=== PATIENT | female | born 1975 | race Caucasian/White ===

== ENCOUNTER 2018-02-21 15:02 | Emergency (ER) | payer MEDICARE ==
[~2018-02-21] VITALS: Ht 167.6 cm; Wt 113.4 kg
[~2018-02-21 15:02] MED LIST: LISINOPRIL5 MG PO
--- NOTE | 2018-02-21 17:05 | Diagnostic Imaging Report ---
RIGHT KNEE - 3 VIEWS RIGHT TIBIA AND FIBULA - 2 VIEWS RIGHT ANKLE - views HISTORY: Pain, "rolled her ankle-felt pop", history of several fractures COMPARISON: None available. FINDINGS: Bones: An irregular lucent line at the tip of the lateral malleolus. Additional 2 mm calcific density between the tip of the lateral malleolus and talus. Subtle linear heterogeneous increased density of the dorsal calcaneus, which may reflect the sequela of remote healed fracture. Joints: Minimal medial femoral compartment degenerative changes of the knee. The ankle mortise is symmetric. Soft tissues: Mild lateral ankle soft tissue swelling. IMPRESSION: Acute memory displaced fracture involving the tip of the lateral malleolus. Signed by: Dr. Jose Alfredo Nguyen D.O., M.M.M. on 02/21/2018 5:01 PM
[2018-02-21] MEDS ORDERED: HYDROCODONE/APAP 5MG-325MG TAB PO ONE (17:45)
[2018-02-21 18:04] VITALS: BP 109/88
== END 2018-02-21 18:22 | disposition home or self-care (01) ==
LOC: ER 15:02
DX: S82.61XA Displaced fracture of lateral malleolus of right fibula, initial encounter for closed fracture (principal); W01.0XXA Fall on same level from slipping, tripping and stumbling without subsequent striking against object, initial encounter; Y93.01 Activity, walking, marching and hiking; Y92.008 Other place in unspecified non-institutional (private) residence as the place of occurrence of the external cause; I10 Essential (primary) hypertension; E78.5 Hyperlipidemia, unspecified; E07.9 Disorder of thyroid, unspecified
CPT/HCPCS: 99284

== ENCOUNTER → 2018-09-13 | Day surgery (SDC) | payer MEDICARE ==
[~2018-09-13] MED LIST changes: +BUPIVACAINE HCL 0.5% INJ 30 ML VIAL INJ ONE; +CLINDAMYCIN 600MG / 50ML 0 ML IV ONE; +DEXAMETHASONE SOD PHOS INJ 4 MG/ML VIAL ONE; +FENTANYL CITRATE/PF 100MCG/2 ML INJ ONE; +LEVOTHYROXINE88 MCG PO; +LIDOCAINE HCL 2% LOCAL INJ 5 ML SDV VIAL INJ ONE; +LOVASTATIN40 MG PO; +METOCLOPRAMIDE HCL 10 MG/2ML VIAL ONE; +MIDAZOLAM HCL 2 MG/2 ML VIAL ONE; +MUPIROCIN 2% OINT 22 GM TUBE ONE; +ONDANSETRON HCL INJ 2MG/ML 2ML 2 MG/ML VIAL ONE; +PHENYLEPHRINE HCL 1% 10 MG/ML VIAL ONE; +PROMETHAZINE HCL (IM) 25 MG/ML VIAL ONE; +PROPOFOL IV EMULSION 10 MG/ML 20 ML VIAL ONE; +SEVOFLURANE INHAL SOLN 250 ML PEN BTL ONE; +VITAMIN E400 UNIT PO; +ZYRTEC10 M3 PO
--- OUTSIDE RECORDS SUMMARY | 2018-09-13 05:24 | XMS REPORT | Continuity of Care Document ---
Author Author [facility] Interface Address Unknown Phone Unavailable Problems Problem Status Onset Date Classification Date Reported Comments Source LEFT ANKLE Active 10/25/2017 [facility] Mastitis without abscess 09/22/2017 12/20/2017 [facility] Cellulitis of right breast 09/13/2017 12/20/2017 [facility] Abscess of buttock, right 09/13/2017 12/20/2017 [facility] BITE Active 09/13/2017 [facility] Calculus of kidney with calculus of ureter 09/11/2017 12/13/2017 [facility] Pyonephrosis 07/22/2017 10/21/2017 [facility] DX: URETER, CALCULUS Active 07/20/2017 [facility] UTI, UERTEROLITHIASIS Active 07/12/2017 [facility] URINARY SYMPTOMS Active 07/12/2017 [facility] UNK Active 07/05/2017 [facility] VOMITTING Active 07/04/2017 [facility] Discharge Diagnosis: Contusion of knee, right 03/08/2017 03/11/2017 [facility] KNEE PAIN Active 03/08/2017 [facility] HTN - Hypertension Active Problem 01/26/2018 [facility] Hypercholesterolemia Active Problem 01/26/2018 [facility] Kidney stone Active Problem 01/26/2018 [facility] Morbid obesity Active Problem 01/26/2018 [facility] Urinary tract infection, site not specified 10/21/2017 [facility] Morbid obesity due to excess calories 10/21/2017 [facility] Unspecified kidney failure 10/21/2017 [facility] Essential hypertension 12/20/2017 [facility] Hyperlipidemia, unspecified 10/21/2017 [facility] Dehydration 10/21/2017 [facility] Hypothyroidism, unspecified 10/21/2017 [facility] Body mass index 38.0-38.9, adult 10/21/2017 [facility] Cutaneous abscess of buttock 12/20/2017 [facility] Insect bite of lower back and pelvis, initial encounter 12/20/2017 [facility] Insect bite of breast, right breast, initial encounter 12/20/2017 [facility] Contact with and exposure to environmental tobacco smoke (acute) (chronic) 12/20/2017 [facility] Bitten or stung by nonvenomous insect and other nonvenomous arthropods, initial encounter 12/20/2017 [facility] URINARY TRACT INFECTION, SITE NOT SPECIF Active [facility] CALCULUS OF URETER Active [facility] Medications Medication Details Route Status Patient Instructions Ordering Provider Order Date Source ibuprofen 800 mg oral tablet 800 mg=1 tab, PO, Q8H, X 5 day, # 30 tab, 0 Refill(s) No Longer Active 09/13/2017 [facility] Sulfamethoxazole 800 MG / Trimethoprim 160 MG Oral Tablet [Bactrim] 1 tab, PO, BID, X 10 day, # 20 tab, 0 Refill(s) No Longer Active 09/13/2017 [facility] Mupirocin 0.02 MG/MG Topical Ointment [Bactroban] 1 appl, TOP, TID, X 5 day, # 22 gm, 0 Refill(s) No Longer Active 09/13/2017 [facility] Levofloxacin 500 MG Oral Tablet [Levaquin] 500 mg=1 tab, PO, Q24H, X 7 day, # 7 tab, 0 Refill(s), Pharmacy: [facility] [id number] No Longer Active 07/15/2017 [facility] Thyroxine 75 microgram, 1 tab, Route: PO, Drug form: TAB, [id number], Dosing Weight 101.818, kg, Start date: 07/15/17 6:30:00 [employer], Duration: 30 day, Stop date: 08/13/17 6:30:00 CSTNotes: Take 1 hour before or 2 hours after meal; Enteral feeds may interefere with the absorption of this medication. (Same as:Synthroid, Levothroid) Inactive 07/15/2017 [facility] Tylenol 500 mg, 1 tab, Route: PO, Drug form: TAB, Q6H, Dosing Weight 101.818, kg, PRN Pain 1-3/Temp > 100.4 F, Start date: 07/14/17 12:09:00 [employer], Duration: 30 day, Stop date: 08/13/17 12:08:00 CSTNotes: Max acetaminophen 4000 mg/day (4 gm/day). (Same as: Tylenol Extra Strength) No Longer Active 07/14/2017 [facility] Lisinopril 5 mg, 1 tab, Route: PO, Drug form: TAB, Daily, Dosing Weight 101.818, kg, Start date: 07/14/17 9:00:00 [employer], Duration: 30 day, Stop date: 08/12/17 9:00:00 CSTNotes: (Same as: Prinivil, Zestril) No Longer Active 07/14/2017 [facility] Zyrtec 10 mg, 2 tab, Route: PO, Drug form: TAB, Daily, Dosing Weight 101.818, kg, Start date: 07/14/17 9:00:00 [employer], Duration: 30 day, Stop date: 08/12/17 9:00:00 CSTNotes: (Same As: Zyrtec) No Longer Active 07/14/2017 [facility] Lipitor 10 mg, 1 tab, Route: PO, Drug form: TAB, Daily, Start date: 07/14/17 9:00:00 [employer], Duration: 30 day, Stop date: 08/12/17 9:00:00 CSTNotes: (Same As: Lipitor) No Longer Active 07/14/2017 [facility] Vitamin E 400 IntlUnit, 1 cap, Route: PO, Drug form: CAP, Daily, Dosing Weight 101.818, kg, Start date: 07/14/17 9:00:00 [employer], Duration: 30 day, Stop date: 08/12/17 9:00:00 [employer] No Longer Active 07/14/2017 [facility] Lovastatin 20 mg, Route: PO, Daily, Dosing Weight 101.818, kg, Start date: 07/14/17 9:00:00 [employer], Duration: 30 day, Stop date: 08/12/17 9:00:00 [employer] No Longer Active 07/14/2017 [facility] Thyroxine 75 microgram, 1 tab, Route: PO, Drug form: TAB, Daily, Dosing Weight 101.818, kg, Start date: 07/14/17 6:30:00 [employer], Duration: 30 day, Stop date: 08/12/17 6:30:00 CSTNotes: Take 1 hour before or 2 hours after meal; Enteral feeds may interefere with the absorption of this medication. (Same as:Synthroid, Levothroid) No Longer Active 07/14/2017 [facility] Imodium A-D 2 mg, 1 cap, Route: PO, Drug form: CAP, Q4H, Dosing Weight 101.818, kg, PRN Diarrhea, Start date: 07/13/17 16:42:00 [employer], Duration: 30 day, Stop date: 08/12/17 16:41:00 CSTNotes: (Same as: Imodium) MAX adult dose is 8 caps/day No Longer Active 07/13/2017 [facility] Levaquin 750 mg, 150 mL, Route: IV, Drug form: SOLN, [id number], Start date: 07/13/17 16:00:00 [employer], Duration: 30 day, Stop date: 08/11/17 9:00:00 [employer], ABX Indication: BacteremiaNotes: (Same as:Levaquin) No Longer Active 07/13/2017 [facility] Rocephin 1 gm, Route: IVPB, Drug form: PDR/INJ, [id number], Dosing Weight 101.818, kg, Start date: 07/13/17 14:00:00 [employer], Duration: 10 day, Stop date: 07/22/17 14:00:00 [employer], ABX Indication: Bacteremia Inactive 07/13/2017 [facility] Acetaminophen 325 MG / Hydrocodone Bitartrate 5 MG Oral Tablet [[place] 5/325] 1 tab, Route: PO, Drug Form: TAB, Dosing Weight 101.818, kg, Q6H, PRN Pain Score 1-3, Start date: 07/13/17 13:46:00 [employer], Duration: 30 day, Stop date: 08/12/17 13:45:00 CSTNotes: (Same as: [place] 325/5) Do not exceed 4gm/day of acetaminophen. No Longer Active 07/13/2017 [facility] morphine Sulfate 12 mg, 6 mL, Route: PO, Drug form: SOLN, Q4H, PRN Pain Score 7-10, Start date: 07/13/17 10:00:00 [employer], Duration: 30 day, Stop date: 08/12/17 9:59:00 CSTNotes: (Same as:MORPhine Sulfate) No Longer Active 07/13/2017 [facility] ketOROLAC 15 mg/mL injectable solution 15 mg, 0.5 mL, Route: IVP, Drug form: INJ, Q6H, Dosing Weight 101.818, kg, PRN Pain Score 4-6, Start date: 07/13/17 9:47:00 [employer], Duration: 4 day, Stop date: 07/17/17 9:46:00 CSTNotes: (Same as:Toradol) IV bolus must be given >15 seconds. Give IM administration slowly and deeply into the muscle. Not for use > 4 days MEDICATION WASTE Product Size: 30 mg Product Wasted: ___ mg No Longer Active 07/13/2017 [facility] Levaquin 500 mg, 2 tab, Route: PO, Drug form: TAB, [id number], Dosing Weight 101.818, kg, Start date: 07/13/17 8:00:00 [employer], Duration: 10 day, Stop date: 07/22/17 8:00:00 [employer], ABX Indication: Urinary Tract InfectionNotes: Do not give w/antacids, dairy pdt & minerals Take 1 hr before or 2 hr after dairy pdt (Same as:Levaquin) Inactive 07/13/2017 [facility] hydromorphone 0.5 mg, 0.5 mL, Route: IV, Drug form: INJ, Q4H, PRN Pain Score 7-10, Start date: 07/13/17 3:10:00 [employer], Stop date: 07/13/17 9:00:00 CSTNotes: Same as: Dilaudid Inactive 07/13/2017 [facility] Ondansetron 4 mg, 2 mL, Route: IVP, Drug form: INJ, Q6H, Dosing Weight 101.818, kg, PRN Nausea & Vomiting, Start date: 07/13/17 1:38:00 [employer], Duration: 30 day, Stop date: 08/12/17 1:37:00 CSTNotes: (Same as: Zofran) MEDICATION WASTE Product Size: 4 mg Product Wasted: ___ mg No Longer Active 07/13/2017 [facility] Morphine 4 mg, Route: IVP, Q4H, Dosing Weight 101.818, kg, PRN Pain Score 7-10, Start date: 07/13/17 1:38:00 [employer], Duration: 30 day, Stop date: 08/12/17 1:37:00 [employer] Inactive 07/13/2017 [facility] Saline Flush 0.9% 10 ml, Route: IVP, Drug Form: INJ, Dosing Weight 101.818, kg, PRN, PRN Line Flush, Start date: 07/13/17 1:38:00 [employer], Duration: 30 day, Stop date: 08/12/17 1:37:00 CSTNotes: (Same as: BD Posiflush) No Longer Active 07/13/2017 [facility] Sodium Chloride 0.9% IV 1,000 mL 1,000 mL, Rate: 125 ml/hr, Infuse over: 8 hr, Route: IV, Dosing Weight 101.818 kg, Total Volume: 1,000, Start date: 07/13/17 1:38:00 [employer], Duration: 30 day, Stop date: 08/12/17 1:37:00 [employer], 2.18, m2 No Longer Active 07/13/2017 [facility] Sodium Chloride 0.9% (Bolus) IV 1,000 mL, 1000 ml/hr, Infuse Over: 1 hr, Route: IV, 1,000, Drug form: INJ, ONCE, Priority: STAT, Dosing Weight 101.818 kg, Start date: 07/12/17 23:52:00 [employer], Stop date: 07/12/17 23:52:00 [employer] No Longer Active 07/13/2017 [facility] Zofran 4 mg, Route: IVP, Drug form: INJ, ONCE, Dosing Weight 101.818, kg, Priority: STAT, Start date: 07/12/17 20:11:00 [employer], Stop date: 07/12/17 20:11:00 [employer] Inactive 07/13/2017 [facility] Fentanyl 50 microgram, Route: IVP, ONCE, Dosing Weight 101.818, kg, Priority: STAT, Start date: 07/12/17 20:11:00 [employer], Stop date: 07/12/17 20:11:00 [employer] Inactive 07/13/2017 [facility] Tylenol 1,000 mg, 2 tab, Route: PO, Drug form: TAB, ONCE, Dosing Weight 101.818, kg, Start date: 07/12/17 20:11:00 [employer], Stop date: 07/12/17 20:11:00 CSTNotes: Max acetaminophen 4000 mg/day (4 gm/day). (Same as: Tylenol Extra Strength) No Longer Active 07/13/2017 [facility] meropenem 1,000 mg, Route: IVPB, Drug form: PDR/INJ, ONCE, Dosing Weight 101.818, kg, Priority: STAT, Start date: 07/12/17 20:09:00 [employer], Stop date: 07/12/17 20:09:00 [employer], ABX Indication: Intra-abdominal Infection Inactive 07/13/2017 [facility] Cipro 400 mg, Route: IVPB, ONCE, Dosing Weight 101.818, kg, Priority: STAT, Start date: 07/12/17 19:59:00 [employer], Stop date: 07/12/17 19:59:00 [employer], ABX Indication: Urinary Tract Infection Inactive 07/13/2017 [facility] NS (Bolus) IV 1,000 mL, 1,000 ml/hr, Infuse Over: 1 hr, Route: IV, ONCE, Priority: STAT, Dosing Weight 101.818 kg, Start date: 07/12/17 16:10:00 [employer], Stop date: 07/12/17 16:10:00 [employer] Inactive 07/12/2017 [facility] Tobramycin 450 mg, 11.25 mL, Route: IVPB, ONCE, Dosing Weight 101.818, kg, CrCl >/=30 ml/min, Time Critical Medication, Priority: STAT, Start date: 07/12/17 15:20:00 [employer], Stop date: 07/12/17 15:20:00 CSTNotes: TIME CRITICAL MEDICATION (Same As: Nebcin) For adult patients only: Round to nearest 10 mg per Medical Staff approval Inactive 07/12/2017 [facility] Calcium Chloride 0.0014 MEQ/ML / Potassium Chloride 0.004 MEQ/ML / Sodium Chloride 0.103 MEQ/ML / Sodium Lactate 0.028 MEQ/ML Injectable Solution 3,300 mL, 1941.18 ml/hr, Infuse Over: 1.7 hr, Route: IV, 3,300, Drug form: INJ, ONCE, Priority: STAT, Dosing Weight 109.818 kg, Start date: 07/12/17 15:18:00 [employer], Stop date: 07/12/17 15:18:00 [employer] Inactive 07/12/2017 [facility] Saline Flush 0.9% 10 mL, Route: IVP, Drug Form: INJ, Dosing Weight 101.818, kg, PRN, PRN Line Flush, Start date: 07/12/17 15:18:00 [employer], Duration: 30 day, Stop date: 08/11/17 15:17:00 CSTNotes: (Same as: BD Posiflush) No Longer Active 07/12/2017 [facility] tramadol hydrochloride 50 MG Oral Tablet [Ultram] 1 - 2 tabs, PO, Q4-6H, PRN Pain 1-3/Temp > 100.4 F, X 4 day, # 30 tab, 0 Refill(s), other No Longer Active 07/09/2017 [facility] ibuprofen 600 mg oral tablet 600 mg=1 tab, PO, Q6H, PRN Pain, take with food, X 7 day, # 28 tab, 0 Refill(s) Active 03/09/2017 [facility] Ibuprofen 800 mg, Route: PO, Drug form: TAB, ONCE, Dosing Weight 124.091, kg, Priority: STAT, Start date: 03/08/17 22:50:00 CDT, Stop date: 03/08/17 22:50:00 CDT Inactive 03/09/2017 [facility] Tylenol 1,000 mg, Route: PO, ONCE, Dosing Weight 124.091, kg, Start date: 03/08/17 22:49:00 CDT, Stop date: 03/08/17 22:49:00 CDT Inactive 03/09/2017 [facility] Allergies, Adverse Reactions, Alerts Substance Category Reaction Severity Reaction type Status Date Reported Comments Source codeine Assertion Drug allergy Active [facility] Keflex Assertion Rash Drug allergy Active [facility] Immunizations Immunization Date Given Site Status Last Updated Comments Source influenza virus vaccine, inactivated 04/18/2014 Right deltoid completed [facility] Results Order Name Results Value Reference Range Date Interpretation Comments Source Ankle 3 views DX Ankle 3 views DX LEFT ANKLE Clinical Indication: - M25.572 Pain in left ankle and joints of left foot Comparison: None FINDINGS: The 3 views of the left ankle show normal alignment without fractures or dislocations. The tibiotalar joint and talar dome are unremarkable. The subtalar joint is unremarkable. There is no ankle joint effusion. The ankle mortise is intact. The distal tibia-fibular alignment is unremarkable. There is no soft tissue swelling or radiopaque foreign bodies. If there is further concern, recommend follow-up radiographs or MRI for complete assessment. IMPRESSION: 1. No fractures or dislocation of the ankle. SL: [id number] 10/25/2017 - - Read by: Birgit Mon MD Dictated Date/time: 10/25/17 15:42 Electronically Signed by: Birgit Mon MD 10/25/17 15:43 FINAL REPORT [facility] URINE AND STOOL POC UA LeukEst Negative *NA* (09/20/17 11:34 AM) Negative 09/20/2017 [facility] URINE AND STOOL POC UA Nit Negative *NA* (09/20/17 11:34 AM) Negative 09/20/2017 [facility] URINE AND STOOL POC UA pH 7.0 5.0 - 8.0 09/20/2017 [facility] URINE AND STOOL POC UA SG 1.015 <=1.030 09/20/2017 [facility] URINE AND STOOL POC UA Turbidity Clear *NA* (09/20/17 11:34 AM) Clear 09/20/2017 [facility] URINE AND STOOL POC UA Color Yellow *NA* (09/20/17 11:34 AM) Yellow 09/20/2017 [facility] URINE AND STOOL POC UA Uro 0.2 EU/dL 0.1 - 1.0 09/20/2017 [facility] URINE AND STOOL POC UA Bld Negative *NA* (09/20/17 11:34 AM) Negative 09/20/2017 [facility] URINE AND STOOL POC UA Bili Negative *NA* (09/20/17 11:34 AM) Negative 09/20/2017 [facility] URINE AND STOOL POC UA Ket Negative mg/dL Negative mg/dL 09/20/2017 [facility] URINE AND STOOL POC UA Glu Negative mg/dL Negative mg/dL 09/20/2017 [facility] URINE AND STOOL POC UA Prot Negative mg/dL Negative mg/dL 09/20/2017 [facility] Retroperitoneal Complete US Retroperitoneal Complete US Clinical Indication: - HX OF INFECTIONS W/STENTS; Comparison: CT July 12, 2017. TECHNIQUE: Multiple longitudinal and transverse real time sonographic images of the kidneys and urinary bladder are obtained. FINDINGS: KIDNEY: The right kidney measures 11.9 cm. The left kidney measures 11.8 cm. The kidneys are normal in size, shape, contour, and position. The cortices are normal in thickness and the corticomedullary differentiation is maintained. No calculus, hydronephrosis, mass, or cyst is appreciated. BLADDER: Partial distension of the urinary bladder with anechoic fluid is noted. No wall thickening or mass is seen. Visualized portions of the abdominal aorta and IVC are unremarkable. IMPRESSION: 1. Resolution of previous right hydronephrosis since July 12, 2017. 2. Normal sonographic appearance of both kidneys. SL: [id number] 09/06/2017 - - Read by: Anuel Huerta MD Dictated Date/time: 09/06/17 14:32 Electronically Signed by: Anuel Huerta MD 09/06/17 14:35 FINAL REPORT [facility] URINE AND STOOL POC UA Nit Negative *NA* (08/11/17 1:48 PM) Negative 08/11/2017 [facility] URINE AND STOOL POC UA LeukEst Negative *NA* (08/11/17 1:48 PM) Negative 08/11/2017 [facility] URINE AND STOOL POC UA Bld Negative *NA* (08/11/17 1:48 PM) Negative 08/11/2017 [facility] URINE AND STOOL POC UA Uro 0.2 EU/dL 0.1 - 1.0 08/11/2017 [facility] URINE AND STOOL POC UA Glu Negative mg/dL Negative mg/dL 08/11/2017 [facility] URINE AND STOOL POC UA Bili Negative *NA* (08/11/17 1:48 PM) Negative 08/11/2017 [facility] URINE AND STOOL POC UA Ket Negative mg/dL Negative mg/dL 08/11/2017 [facility] URINE AND STOOL POC UA Color Yellow *NA* (08/11/17 1:48 PM) Yellow 08/11/2017 [facility] URINE AND STOOL POC UA Turbidity Clear *NA* (08/11/17 1:48 PM) Clear 08/11/2017 [facility] URINE AND STOOL POC UA SG 1.020 <=1.030 08/11/2017 [facility] URINE AND STOOL POC UA Prot Negative mg/dL Negative mg/dL 08/11/2017 [facility] URINE AND STOOL POC UA pH 6.0 5.0 - 8.0 08/11/2017 [facility] ELECTROLYTES AGAP 12.6 meq/L 10.0 - 20.0 07/14/2017 [facility] ELECTROLYTES eGFR 111 mL/min/1.73m2 07/14/2017 Result Comment: The eGFR is calculated using the CKD-EPI formula. In most young, healthy individuals the eGFR will be >90 mL/min/1.73m2. The eGFR declines with age. An eGFR of 60-89 may be normal in some populations, particularly the elderly, for whom the CKD-EPI formula has not been extensively validated. Use of the eGFR is not recommended in the following populations: Individuals with unstable creatinine concentrations, including patients and those with serious co-morbid conditions. Patients with extremes in muscle mass or diet. The data above are obtained from the National Kidney Disease Education Program (NKDEP) which additionally recommends that when the eGFR is used in patients with extremes of body mass index for purposes of drug dosing, the eGFR should be multiplied by the estimated BMI. [facility] ELECTROLYTES Potassium Lvl 3.6 meq/L 3.5 - 5.1 07/14/2017 [facility] ELECTROLYTES Chloride Lvl 106 meq/L 95 - 109 07/14/2017 [facility] ELECTROLYTES Sodium Lvl 140 meq/L 135 - 145 07/14/2017 [facility] ELECTROLYTES Creatinine Lvl 0.63 mg/dL 0.50 - 1.40 07/14/2017 [facility] ELECTROLYTES BUN 11 mg/dL 7 - 22 07/14/2017 [facility] ELECTROLYTES Calcium Lvl 8.4 mg/dL 8.5 - 10.5 07/14/2017 [facility] ELECTROLYTES CO2 25 meq/L 24 - 32 07/14/2017 [facility] ELECTROLYTES Glucose Lvl 100 mg/dL 70 - 99 07/14/2017 [facility] RDW 13.4 % 11.5 - 14.5 07/14/2017 [facility] MCHC 33.7 g/dL 32.0 - 36.0 07/14/2017 [facility] Platelet 268 K/CMM 133 - 450 07/14/2017 [facility] MCV 80.5 fL 80.0 - 98.0 07/14/2017 [facility] MCH 27.1 pg 27.0 - 31.0 07/14/2017 [facility] RBC 3.89 M/CMM 4.20 - 5.40 07/14/2017 [facility] Hgb 10.5 g/dL 12.0 - 16.0 07/14/2017 [facility] Hct 31.3 % 36.0 - 48.0 07/14/2017 [facility] MPV 8.7 fL 7.4 - 10.4 07/14/2017 [facility] HEMATOLOGY WBC 11.0 K/CMM 3.7 - 10.4 07/14/2017 [facility] HEMATOLOGY Basophils # 0.1 K/CMM 0.0 - 0.2 07/14/2017 [facility] HEMATOLOGY Monocytes # 1.0 K/CMM 0.0 - 0.8 07/14/2017 [facility] HEMATOLOGY Eosinophils # 0.4 K/CMM 0.0 - 0.5 07/14/2017 [facility] HEMATOLOGY Lymphocytes # 1.7 K/CMM 1.0 - 5.5 07/14/2017 [facility] HEMATOLOGY Basophils 0.5 % 0.0 - 1.0 07/14/2017 [facility] HEMATOLOGY Segs-Bands # 7.9 K/CMM 1.5 - 8.1 07/14/2017 [facility] HEMATOLOGY Segs 71.7 % 45.0 - 75.0 07/14/2017 [facility] Monocytes 8.9 % 2.0 - 12.0 07/14/2017 [facility] Lymphocytes 15.6 % 20.0 - 40.0 07/14/2017 [facility] Eosinophils 3.3 % 0.0 - 4.0 07/14/2017 [facility] CHEM PANEL Magnesium Lvl 1.8 mg/dL 1.8 - 2.4 07/13/2017 [facility] CHEM PANEL eGFR 86 mL/min/1.73m2 07/13/2017 Result Comment: The eGFR is calculated using the CKD-EPI formula. In most young, healthy individuals the eGFR will be >90 mL/min/1.73m2. The eGFR declines with age. An eGFR of 60-89 may be normal in some populations, particularly the elderly, for whom the CKD-EPI formula has not been extensively validated. Use of the eGFR is not recommended in the following populations: Individuals with unstable creatinine concentrations, including patients and those with serious co-morbid conditions. Patients with extremes in muscle mass or diet. The data above are obtained from the National Kidney Disease Education Program (NKDEP) which additionally recommends that when the eGFR is used in patients with extremes of body mass index for purposes of drug dosing, the eGFR should be multiplied by the estimated BMI. [facility] CHEM PANEL Globulin 3.7 g/dL 2.7 - 4.2 07/13/2017 [facility] CHEM PANEL Bili Total 1.0 mg/dL 0.2 - 1.3 07/13/2017 [facility] CHEM PANEL Alk Phos 71 unit/L 39 - 136 07/13/2017 [facility]M PANEL AST 9 unit/L 0 - 37 07/13/2017 [facility] CHEM PANEL Albumin Lvl 2.9 g/dL 3.5 - 5.0 07/13/2017 [facility] CHEM PANEL A/G Ratio 0.8 0.7 - 1.6 07/13/2017 [facility] CHEM PANEL ALT 13 unit/L 0 - 65 07/13/2017 [facility] CHEM PANEL Glucose Lvl 111 mg/dL 70 - 99 07/13/2017 [facility] CHEM PANEL Potassium Lvl 3.3 meq/L 3.5 - 5.1 07/13/2017 [facility] CHEM PANEL Sodium Lvl 138 meq/L 135 - 145 07/13/2017 [facility] CHEM PANEL Creatinine Lvl 0.84 mg/dL 0.50 - 1.40 07/13/2017 [facility] CHEM PANEL BUN 10 mg/dL 7 - 22 07/13/2017 [facility] CHEM PANEL Calcium Lvl 8.0 mg/dL 8.5 - 10.5 07/13/2017 [facility] CHEM PANEL AGAP 14.3 meq/L 10.0 - 20.0 07/13/2017 [facility] CHEM PANEL CO2 25 meq/L 24 - 32 07/13/2017 [facility] CHEM PANEL Chloride Lvl 102 meq/L 95 - 109 07/13/2017 [facility] CHEM PANEL Total Protein 6.6 g/dL 6.4 - 8.4 07/13/2017 [facility] CHEM PANEL B/C Ratio 12 6 - 25 07/13/2017 [facility] HEMATOLOGY Segs 76.4 % 45.0 - 75.0 07/13/2017 [facility] HEMATOLOGY Segs-Bands # 10.1 K/CMM 1.5 - 8.1 07/13/2017 [facility] HEMATOLOGY Eosinophils 1.1 % 0.0 - 4.0 07/13/2017 [facility] HEMATOLOGY Basophils 0.4 % 0.0 - 1.0 07/13/2017 [facility] HEMATOLOGY Basophils # 0.1 K/CMM 0.0 - 0.2 07/13/2017 [facility] HEMATOLOGY Eosinophils # 0.1 K/CMM 0.0 - 0.5 07/13/2017 [facility] HEMATOLOGY Monocytes 10.4 % 2.0 - 12.0 07/13/2017 [facility] HEMATOLOGY Lymphocytes 11.7 % 20.0 - 40.0 07/13/2017 [facility] Monocytes # 1.4 K/CMM 0.0 - 0.8 07/13/2017 [facility] HEMATOLOGY Lymphocytes # 1.5 K/CMM 1.0 - 5.5 07/13/2017 [facility] RBC 4.11 M/CMM 4.20 - 5.40 07/13/2017 [facility] WBC 13.2 K/CMM 3.7 - 10.4 07/13/2017 [facility] Platelet 267 K/CMM 133 - 450 07/13/2017 [facility] MCHC 33.7 g/dL 32.0 - 36.0 07/13/2017 [facility] RDW 13.6 % 11.5 - 14.5 07/13/2017 [facility] MPV 9.1 fL 7.4 - 10.4 07/13/2017 [facility] Hgb 11.1 g/dL 12.0 - 16.0 07/13/2017 [facility] Hct 33.1 % 36.0 - 48.0 07/13/2017 [facility] MCH 27.1 pg 27.0 - 31.0 07/13/2017 [facility] MCV 80.5 fL 80.0 - 98.0 07/13/2017 [facility] [facility]INE [facility] STOOL UA Nitrite Negative (07/12/17 8:02 PM) Negative 07/13/2017 [facility] URINE AND STOOL UA Blood Large *ABN* (07/12/17 8:02 PM) Negative 07/13/2017 [facility] URINE AND STOOL UA Urobilinogen 1.0 EU/dL 0.1 - 1.0 07/13/2017 [facility] URINE AND STOOL UA Bili Small *ABN* (07/12/17 8:02 PM) Negative 07/13/2017 [facility] URINE AND STOOL UA Protein 100 mg/dL Negative mg/dL 07/13/2017 [facility] URINE AND STOOL UA Glucose Negative (07/12/17 8:02 PM) Negative 07/13/2017 [facility]INE AND STOOL UA Leuk Est Trace *ABN* (07/12/17 8:02 PM) Negative 07/13/2017 [facility] URINE AND STOOL UA pH 6.5 5.0 - 8.0 07/13/2017 [facility] URINE AND STOOL UA Turbidity Cloudy *ABN* (07/12/17 8:02 PM) Clear 07/13/2017 [facility] URINE AND STOOL UA Ketones 40 mg/dL Negative mg/dL 07/13/2017 [facility] URINE AND STOOL UA Color Brown *ABN* (07/12/17 8:02 PM) Yellow 07/13/2017 [facility] URINE AND STOOL UA Spec Grav 1.025 <=1.030 07/13/2017 [facility] URINE AND STOOL UA Sq Epi Many /LPF Few /LPF 07/13/2017 [facility] URINE AND STOOL UA Mucus Many /LPF None Seen /LPF 07/13/2017 [facility] URINE AND STOOL UA WBC 9 /HPF 0 - 5 07/13/2017 [facility] URINE AND STOOL UA RBC null 0 - 2 07/13/2017 [facility] URINE AND STOOL UA Bacteria Many /HPF None Seen /HPF 07/13/2017 [facility] CARDIAC ENZYMES Troponin-I null 0.00 - 0.40 07/12/2017 [facility] CARDIAC ENZYMES Total CK 95 unit/L 12 - 191 07/12/2017 [facility] CHEM PANEL A/G Ratio 0.7 0.7 - 1.6 07/12/2017 [facility] CHEM PANEL AGAP 19.9 meq/L 10.0 - 20.0 07/12/2017 [facility] CHEM PANEL B/C Ratio 12 6 - 25 07/12/2017 [facility] CHEM PANEL Globulin 5.1 g/dL 2.7 - 4.2 07/12/2017 [facility] CHEM PANEL eGFR 50 mL/min/1.73m2 07/12/2017 Result Comment: The eGFR is calculated using the CKD-EPI formula. In most young, healthy individuals the eGFR will be >90 mL/min/1.73m2. The eGFR declines with age. An eGFR of 60-89 may be normal in some populations, particularly the elderly, for whom the CKD-EPI formula has not been extensively validated. Use of the eGFR is not recommended in the following populations: Individuals with unstable creatinine concentrations, including patients and those with serious co-morbid conditions. Patients with extremes in muscle mass or diet. The data above are obtained from the National Kidney Disease Education Program (NKDEP) which additionally recommends that when the eGFR is used in patients with extremes of body mass index for purposes of drug dosing, the eGFR should be multiplied by the estimated BMI. [facility] CHEM PANEL Bili Total 1.2 mg/dL 0.2 - 1.3 07/12/2017 [facility] CHEM PANEL Alk Phos 92 unit/L 39 - 136 07/12/2017 [facility] CHEM PANEL AST 37 unit/L 0 - 37 07/12/2017 [facility] CHEM PANEL ALT 33 unit/L 0 - 65 07/12/2017 [facility] CHEM PANEL Total Protein 8.7 g/dL 6.4 - 8.4 07/12/2017 [facility] CHEM PANEL Albumin Lvl 3.6 g/dL 3.5 - 5.0 07/12/2017 [facility] CHEM PANEL CO2 20 meq/L 24 - 32 07/12/2017 [facility] CHEM PANEL Creatinine Lvl 1.31 mg/dL 0.50 - 1.40 07/12/2017 [facility] CHEM PANEL Calcium Lvl 8.7 mg/dL 8.5 - 10.5 07/12/2017 [facility] CHEM PANEL Chloride Lvl 99 meq/L 95 - 109 07/12/2017 [facility] CHEM PANEL Sodium Lvl 135 meq/L 135 - 145 07/12/2017 [facility] CHEM PANEL Potassium Lvl 3.9 meq/L 3.5 - 5.1 07/12/2017 [facility] CHEM PANEL BUN 16 mg/dL 7 - 22 07/12/2017 [facility] CHEM PANEL Glucose Lvl 79 mg/dL 70 - 99 07/12/2017 [facility] CHEM PANEL Lactic Acid Lvl 0.9 mMol/L 0.5 - 2.2 07/12/2017 [facility] CHEM PANEL Procalcitonin Lvl null 0.00 - 0.10 07/12/2017 [facility] HEMATOLOGY Lymphocytes # 1.8 K/CMM 1.0 - 5.5 07/12/2017 [facility] HEMATOLOGY Segs 81.7 % 45.0 - 75.0 07/12/2017 [facility] HEMATOLOGY Monocytes 7.4 % 2.0 - 12.0 07/12/2017 [facility] HEMATOLOGY Lymphocytes 9.2 % 20.0 - 40.0 07/12/2017 [facility] HEMATOLOGY Eosinophils 1.4 % 0.0 - 4.0 07/12/2017 [facility] HEMATOLOGY Basophils 0.3 % 0.0 - 1.0 07/12/2017 [facility] HEMATOLOGY Segs-Bands # 15.9 K/CMM 1.5 - 8.1 07/12/2017 [facility] HEMATOLOGY Basophils # 0.1 K/CMM 0.0 - 0.2 07/12/2017 [facility] HEMATOLOGY Eosinophils # 0.3 K/CMM 0.0 - 0.5 07/12/2017 [facility] Monocytes # 1.4 K/CMM 0.0 - 0.8 07/12/2017 [facility] PTT 29.9 s 22.9 - 35.8 07/12/2017 [facility] RDW 13.6 % 11.5 - 14.5 07/12/2017 [facility] MCHC 33.7 g/dL 32.0 - 36.0 07/12/2017 [facility] Platelet 338 K/CMM 133 - 450 07/12/2017 [facility] MPV 9.2 fL 7.4 - 10.4 07/12/2017 [facility] WBC 19.4 K/CMM 3.7 - 10.4 07/12/2017 [facility] Hgb 13.3 g/dL 12.0 - 16.0 07/12/2017 [facility] RBC 4.88 M/CMM 4.20 - 5.40 07/12/2017 [facility] MCH 27.2 pg 27.0 - 31.0 07/12/2017 [facility] MCV 80.8 fL 80.0 - 98.0 07/12/2017 [facility] Hct 39.4 % 36.0 - 48.0 07/12/2017 [facility] PT 13.8 s 12.0 - 14.7 07/12/2017 [facility] INR 1.06 0.85 - 1.17 07/12/2017 [facility] ED Abdomen/Pelvis IV contrast only CT ED Abdomen/Pelvis IV contrast only CT History: Abdomen Pain DLP: 1284.69 Exam: CT Abdomen \T\ Pelvis Technique: Serial axial enhanced images of the abdomen and pelvis with reconstruction images are provided. Findings: Lung bases show trace bibasilar atelectasis. No pleural effusions are seen. Liver, spleen, left kidney, pancreas and adrenal glands are normal. Cholecystectomy seen. There is moderate right hydronephrosis and hydroureter due to a 1 mm stone at the right uretero-vesicular junction on image 112. No additional renal calculi seen. Mild right perinephric stranding is seen. There is no bulky lymphadenopathy. Bowel loops are normal. Aorta, appendix and bladder are normal. Uterus removed. Mild pelvic free fluid seen. Impression: 1. Moderate right hydronephrosis and hydroureter due to 1 mm stone at the right uretero-vesicular junction. 2. No additional renal calculi seen. 3. Mild right perinephric stranding. 4. Mild pelvic free fluid. 07/12/2017 - - Read by: Chacho Burdick MD Dictated Date/time: 07/12/17 21:51 Electronically Signed by: Chacho Burdick MD 07/12/17 22:31 FINAL REPORT [facility] Renal Stone CT Renal Stone CT Patient Name: PEG LOMBARDI : 1975; Age: 42 years y/o Female MR: [id number] Study: Renal Stone CT 07/04/2017 2:51 PM [facility] [employer] Ordering Physician: Clinical Indication: Abdominal pain, acute - renal stone protocol; Comparison: None TECHNIQUE: Noncontrasted helical imaging was performed from the kidneys through the symphysis as a renal stone protocol. Multiplanar reformations are available. CT Radiation Dose: PRA=2320 mGy-cm FINDINGS: This examination is limited for the evaluation of solid organs and vascular structures due to withheld intravenous contrast -- the standard for urinary calculus assessment CT. KIDNEYS: Right hydronephrosis secondary to a 6 mm calculus in the proximal right ureter, a few centimeters below the right ureteropelvic junction. Left kidney, ureter otherwise normal. LOWER CHEST: The lung bases are clear. SOLID ORGANS: The visualized liver, spleen, pancreas, and adrenal glands are normal. Cholecystectomy. No biliary ductal dilatation. BOWEL: No acute bowel pathology. PERITONEUM: No free intraperitoneal fluid or air. RETROPERITONEUM: No adenopathy. Aorta is normal. PELVIS: No pelvic mass. The urinary bladder is normal. MUSCULOSKELETAL: The skeleton is intact. IMPRESSION: Right hydronephrosis secondary to 6 mm proximal ureteral calculus. SL: JASON-PC 07/04/2017 - - Read by: Kirit Panda MD Dictated Date/time: 07/04/17 17:17 Electronically Signed by: Kirit Panda MD 07/04/17 17:19 FINAL REPORT [facility] Knee series 3 views DX Knee series 3 views DX Patient Name: PEG LOMBARDI : 1975; Age: 42 years Female MR: [id number] Study: Knee series 3 views DX 03/08/2017 6:40 PM CDT Clinical Indication: Pain Post Trauma - Trauma. Right knee pain, fall earlier in the day. COMPARISON: None FINDINGS: Views and laterality: 3 views right Examination of the knee demonstrates normal alignment without fractures or dislocations. The medial, lateral tibiofemoral compartments and patellofemoral compartment are normal. There is no knee regional soft tissue swelling. Hoffa's fat pad is normal. There are no loose bodies in the joint space. There is no joint effusion. There are no radiopaque foreign bodies. If there is further concern, recommend follow-up radiographs or MRI for complete assessment. IMPRESSION: No fractures or dislocation of the knee. SL: ROSALIE 03/08/2017 - - Read by: Julien Agrawal MD Dictated Date/time: 03/08/17 19:09 Electronically Signed by: Julien Agrawal MD 03/08/17 19:10 FINAL REPORT [facility] Vital Signs Vital Sign Value Date Comments Source BMI Calculated 41.67 09/20/2017 [facility] Weight 110.114 09/20/2017 [facility] Height 162.56 cm 09/20/2017 [facility] Systolic (mm Hg) 109 09/20/2017 [facility] Diastolic (mm Hg) 80 09/20/2017 [facility] Heart Rate 85 09/20/2017 [facility] Respitory Rate 16 09/13/2017 [facility] Systolic (mm Hg) 135 09/13/2017 [facility] Diastolic (mm Hg) 76 09/13/2017 [facility] Temperature Oral (F) 97.7 F 09/13/2017 [facility] Heart Rate 85 09/13/2017 [facility] Weight 104.545 09/13/2017 [facility] BMI Calculated 40.83 09/13/2017 [facility] Height 160.02 cm 09/13/2017 [facility] Temperature Oral (F) 98.7 F 09/13/2017 [facility] Systolic (mm Hg) 141 09/13/2017 [facility] Diastolic (mm Hg) 98 09/13/2017 [facility] Heart Rate 95 09/13/2017 [facility] Respitory Rate 16 09/13/2017 [facility] Heart Rate 96 08/11/2017 [facility] Systolic (mm Hg) 134 08/11/2017 [facility] Diastolic (mm Hg) 83 08/11/2017 [facility] Heart Rate 87 07/15/2017 [facility] Systolic (mm Hg) 144 07/15/2017 [facility] Diastolic (mm Hg) 95 07/15/2017 [facility] Respitory Rate 18 07/15/2017 [facility] Temperature Oral (F) 98.6 F 07/15/2017 [facility] Systolic (mm Hg) 140 07/15/2017 [facility] Diastolic (mm Hg) 107 07/15/2017 [facility] Respitory Rate 18 07/15/2017 [facility] Temperature Oral (F) 98.5 F 07/15/2017 [facility] Heart Rate 80 07/15/2017 [facility] Systolic (mm Hg) 146 07/15/2017 [facility] Diastolic (mm Hg) 102 07/15/2017 [facility] Respitory Rate 18 07/15/2017 [facility] Heart Rate 72 07/15/2017 [facility] Temperature Oral (F) 97.9 F 07/15/2017 [facility] Height 162.56 cm 07/13/2017 [facility] BMI Calculated 38.53 07/13/2017 [facility] Weight 101.818 07/13/2017 [facility] Weight 101.818 07/12/2017 [facility] BMI Calculated 38.53 07/12/2017 [facility] Height 162.56 cm 07/12/2017 [facility] Temperature Oral (F) 98.2 F 03/09/2017 [facility] Systolic (mm Hg) 139 03/09/2017 [facility] Diastolic (mm Hg) 99 03/09/2017 [facility] Respitory Rate 18 03/09/2017 [facility] Heart Rate 90 03/09/2017 [facility] Heart Rate 86 03/09/2017 [facility] Temperature Oral (F) 97.9 F 03/09/2017 [facility] Respitory Rate 18 03/09/2017 [facility] Systolic (mm Hg) 141 03/09/2017 [facility] Diastolic (mm Hg) 87 03/09/2017 [facility] Height 162.56 cm 03/08/2017 [facility] Weight 124.091 03/08/2017 [facility] BMI Calculated 46.96 03/08/2017 [facility] Temperature Oral (F) 99.2 F 03/08/2017 [facility] Heart Rate 104 03/08/2017 [facility] Systolic (mm Hg) 156 03/08/2017 [facility] Diastolic (mm Hg) 98 03/08/2017 [facility] Respitory Rate 17 03/08/2017 [facility] Encounters Location Location Details Encounter Type Encounter Number Reason For Visit Attending Provider ADM Date DC Date Status Source [facility] Emergency [id number] Jonathan Colón 03/08/2017 03/09/2017 [facility] [id number] [facility] 03/22/2017 Active [facility] Outpatient [id number] [facility] 07/05/2017 Active [facility] Outpatient [id number] [facility] 07/05/2017 Active [facility] Outpatient [id number] [facility] 07/07/2017 Active [facility] Outpatient [id number] [facility] 07/07/2017 Active [facility] Inpatient [id number] [facility] 07/12/2017 07/15/2017 [facility] [id number] [facility] 08/11/2017 [facility] Outpatient [id number] Lupillo Fenton 08/11/2017 08/12/2017 [facility] Outpatient [id number] [facility] 09/06/2017 09/07/2017 [facility] Emergency [id number] Eugenio Marisela 09/13/2017 09/13/2017 [facility] Outpatient [id number] [facility] 09/20/2017 Active [facility] Outpatient [id number] Lupillo Fenton 09/20/2017 09/21/2017 [facility] Outpatient [id number] Lupillo Fenton 10/25/2017 10/26/2017 [facility] Procedures Procedure Code Date Perfomer Comments Source Abdominal hysterectomy [id number] [facility] Cholecystectomy [id number] [facility] Procedure on knee [id number] [facility] Stent placement<sup>1</sup> [id number] kidney for stone [facility] Abdominal hysterectomy [id number] [facility] Cholecystectomy [id number] [facility] Procedure on knee [id number] [facility] Stent placement<sup>1</sup> [id number] kidney for stone [facility]
--- OUTSIDE RECORDS SUMMARY | 2018-09-13 05:24 | XMS REPORT | Summary of Care ---
Author Author [facility] Organization [facility] Address Unknown Phone Unavailable Encounter AMARIS Mccurdy(TYLER) [id number] Date(s): 03/08/17 - 03/08/17 [facility] [address] [place] [address]- Discharge Diagnosis: Contusion of knee, right Discharge Disposition: Home or Self Care Attending Physician: Jonathan Colón MD Vital Signs 1 2 3 Most recent to oldest [Reference Range]: 162.56 cm (03/08/17 6:39 PM) Height 98.2 DegF (03/08/17 11:46 PM) 97.9 DegF (03/08/17 10:29 PM) 99.2 DegF *HI* (03/08/17 6:39 PM) Temperature Oral [96.4-99.1 DegF] 139/99 mmHg (03/08/17 11:46 PM) 141/87 mmHg *HI* (03/08/17 10:29 PM) 156/98 mmHg *HI* (03/08/17 6:39 PM) Blood Pressure [90-140/60-90 mmHg] 18 BRMIN (03/08/17 11:46 PM) 18 BRMIN (03/08/17 10:29 PM) 17 BRMIN (03/08/17 6:39 PM) Respiratory Rate [14-20 BRMIN] 90 bpm (03/08/17 11:46 PM) 86 bpm (03/08/17 10:29 PM) 104 bpm *HI* (03/08/17 6:39 PM) Peripheral Pulse Rate [60-100 bpm] 124.091 kg (03/08/17 6:39 PM) Weight 46.96 m2 (03/08/17 6:39 PM) Body Mass Index Problem List Condition Effective Dates Status Health Status Informant HTN - Active Hypertension(Confirm ed) Hypercholesterolemia Active (Confirmed) Kidney Active stone(Confirmed) Allergies, Adverse Reactions, Alerts Substance Reaction Severity Status codeine Active Keflex Active Medications ibuprofen 800 mg, Route: PO, Drug form: TAB, ONCE, Dosing Weight 124.091, kg, Priority: ST AT, Start date: 03/08/17 22:50:00 CDT, Stop date: 03/08/17 22:50:00 CDT Start Date: 03/08/17 Stop Date: 03/08/17 Status: Completed ibuprofen 600 mg oral tablet 600 mg=1 tab, PO, Q6H, PRN Pain, take with food, X 7 day, # 28 tab, 0 Refill(s) Start Date: 03/08/17 Stop Date: 03/15/17 Status: Ordered Tylenol 1,000 mg, Route: PO, ONCE, Dosing Weight 124.091, kg, Start date: 03/08/17 22:49 :00 CDT, Stop date: 03/08/17 22:49:00 CDT Start Date: 03/08/17 Stop Date: 03/08/17 Status: Discontinued Results No data available for this section Immunizations Given and Recorded Vaccine Date Status Refusal Reason influenza virus vaccine, inactivated 04/18/14 Given Procedures Procedure Date Related Diagnosis Body Site Abdominal hysterectomy Cholecystectomy Procedure on knee Social History Social History Type Response Alcohol Current, Frequency: 1-2 times per year. Smoking Status Never smoker; Exposure to Tobacco Smoke intermittent exposure to family that smokes; Cigarette Smoking Last 365 Days No; Reg Smoking Cessation Counseling No Assessment and Plan No data available for this section
--- OUTSIDE RECORDS SUMMARY | 2018-09-13 05:24 | XMS REPORT | Summary of Care ---
Author Author [facility] Organization [facility] Address Unknown Phone Unavailable Encounter AMARIS Mccurdy(FIN) [id number] Date(s): 09/20/17 - 09/20/17 [facility] [address] [place] [address] [phone] Discharge Disposition: Home or Self Care Attending Physician: Tavares Givens MD Referring Physician: Lupillo Fenton MD Vital Signs Most recent to 1 oldest [Reference Range]: Height 162.56 cm (09/20/17 4:41 PM) Blood Pressure 109/80 mmHg [90-140/60-90 mmHg] (09/20/17 4:41 PM) Peripheral Pulse 85 bpm Rate [60-100 bpm] (09/20/17 4:41 PM) Weight 110.114 kg (09/20/17 4:41 PM) Body Mass Index 41.67 m2 (09/20/17 4:41 PM) Problem List Condition Effective Dates Status Health Status Informant HTN - Active Hypertension(Confirm ed) Hypercholesterolemia Active (Confirmed) Kidney Active stone(Confirmed) Morbid Active obesity(Confirmed) Allergies, Adverse Reactions, Alerts Substance Reaction Severity Status codeine Active Keflex Rash Active Medications Ultram 50 mg oral tablet 1 - 2 tabs, PO, Q4-6H, PRN Pain 1-3/Temp > 100.4 F, X 4 day, # 30 tab, 0 Refill(s), other Start Date: 07/09/17 Stop Date: 07/13/17 Status: Completed Results URINE AND STOOL Most recent to 1 oldest [Reference Range]: POC UA Turbidity Clear [Clear] *NA* (09/20/17 11:34 AM) POC UA Color Yellow [Yellow] *NA* (09/20/17 11:34 AM) POC UA pH [5.0-8.0] 7.0 (09/20/17 11:34 AM) POC UA SG [<=1.030] 1.015 (09/20/17 11:34 AM) POC UA Glu [Negative Negative mg/dL mg/dL] *NA* (09/20/17 11:34 AM) POC UA Bld Negative [Negative] *NA* (09/20/17 11:34 AM) POC UA Ket [Negative Negative mg/dL mg/dL] *NA* (09/20/17 11:34 AM) POC UA Prot Negative mg/dL [Negative mg/dL] *NA* (09/20/17 11:34 AM) POC UA Uro [0.1-1.0 0.2 EU/dL EU/dL] (09/20/17 11:34 AM) POC UA Bili Negative [Negative] *NA* (09/20/17 11:34 AM) POC UA LeukEst Negative [Negative] *NA* (09/20/17 11:34 AM) POC UA Nit Negative [Negative] *NA* (09/20/17 11:34 AM) Immunizations Given and Recorded Vaccine Date Status Refusal Reason influenza virus vaccine, inactivated 04/18/14 Given Procedures Procedure Date Related Diagnosis Body Site Status Abdominal hysterectomy Completed Cholecystectomy Completed Procedure on knee Completed Stent placement1 Completed 1kidney for stone Social History Social History Type Response Substance Abuse Use: None. Alcohol Current, Frequency: 1-2 times per year. Smoking Status Never smoker; Exposure to Tobacco Smoke intermittent exposure to family that smokes; Cigarette Smoking Last 365 Days No; Reg Smoking Cessation Counseling No entered on: 09/20/17 Assessment and Plan No data available for this section
--- OUTSIDE RECORDS SUMMARY | 2018-09-13 05:25 | XMS REPORT | Summary of Care ---
Author Author [facility] Organization [facility] Address Unknown Phone Unavailable Encounter [facility](FIN) [id number] Date(s): 08/11/17 - 08/11/17 [facility] [address] [place] [address] [phone] Discharge Disposition: Home or Self Care Attending Physician: Tavares Givens MD Referring Physician: Lupillo Fenton MD Vital Signs Most recent to 1 oldest [Reference Range]: Blood Pressure 134/83 mmHg [90-140/60-90 mmHg] (08/11/17 2:31 PM) Peripheral Pulse 96 bpm Rate [60-100 bpm] (08/11/17 2:31 PM) Problem List Condition Effective Dates Status Health Status Informant HTN - Active Hypertension(Confirm ed) Hypercholesterolemia Active (Confirmed) Kidney Active stone(Confirmed) Morbid Active obesity(Confirmed) Allergies, Adverse Reactions, Alerts Substance Reaction Severity Status codeine Active Keflex Rash Active Medications No Known Medications Results URINE AND STOOL Most recent to 1 oldest [Reference Range]: POC UA Turbidity Clear [Clear] *NA* (08/11/17 1:48 PM) POC UA Color Yellow [Yellow] *NA* (08/11/17 1:48 PM) POC UA pH [5.0-8.0] 6.0 (08/11/17 1:48 PM) POC UA SG [<=1.030] 1.020 (08/11/17 1:48 PM) POC UA Glu [Negative Negative mg/dL mg/dL] *NA* (08/11/17 1:48 PM) POC UA Bld Negative [Negative] *NA* (08/11/17 1:48 PM) POC UA Ket [Negative Negative mg/dL mg/dL] *NA* (08/11/17 1:48 PM) POC UA Prot Negative mg/dL [Negative mg/dL] *NA* (08/11/17 1:48 PM) POC UA Uro [0.1-1.0 0.2 EU/dL EU/dL] (08/11/17 1:48 PM) POC UA Bili Negative [Negative] *NA* (08/11/17 1:48 PM) POC UA LeukEst Negative [Negative] *NA* (08/11/17 1:48 PM) POC UA Nit Negative [Negative] *NA* (08/11/17 1:48 PM) Immunizations Given and Recorded Vaccine Date Status [...]
--- OUTSIDE RECORDS SUMMARY | 2018-09-13 05:25 | XMS REPORT | Summary of Care ---
Author Author [facility] Organization [facility] Address Unknown Phone Unavailable Encounter [facility](FIN) [id number] Date(s): 09/13/17 - 09/13/17 [facility] [address] [place] [address]- [phone] Encounter Diagnosis Cellulitis of right breast (Discharge Diagnosis) - 09/13/17 Abscess of buttock, right (Discharge Diagnosis) - 09/13/17 Mastitis without abscess (Final) - 09/21/17 Cutaneous abscess of buttock (Final) - Insect bite (nonvenomous) of lower back and pelvis, initial encounter (Final) - Insect bite (nonvenomous) of breast, right breast, initial encounter (Final) - Essential (primary) hypertension (Final) - Contact with and (suspected) exposure to environmental tobacco smoke (acute) (ch ronic) (Final) - Bitten or stung by nonvenomous insect and other nonvenomous arthropods, initial encounter (Final) - Discharge Disposition: Home or Self Care Attending Physician: Eugenio Antonio MD Vital Signs Most recent to 1 2 oldest [Reference Range]: Height 160.02 cm (09/13/17 11:33 AM) Temperature Oral 97.7 DegF 98.7 DegF [96.4-99.1 DegF] (09/13/17 1:23 PM) (09/13/17 11:33 AM) Blood Pressure 135/76 mmHg 141/98 mmHg [90-140/60-90 mmHg] (09/13/17 1:23 PM) *HI* (09/13/17 11:33 AM) Respiratory Rate 16 BRMIN 16 BRMIN [14-20 BRMIN] (09/13/17 1:23 PM) (09/13/17 11:33 AM) Peripheral Pulse 85 bpm 95 bpm Rate [60-100 bpm] (09/13/17 1:23 PM) (09/13/17 11:33 AM) Weight 104.545 kg (09/13/17 11:33 AM) Body Mass Index 40.83 m2 (09/13/17 11:33 AM) Problem List Condition Effective Dates Status Health Status Informant HTN - Active Hypertension(Confirm ed) Hypercholesterolemia Active (Confirmed) Kidney Active stone(Confirmed) Morbid Active obesity(Confirmed) Allergies, Adverse Reactions, Alerts Substance Reaction Severity Status codeine Active Keflex Rash Active Medications Bactrim DS 800 mg- 160 mg oral tablet 1 tab, PO, BID, X 10 day, # 20 tab, 0 Refill(s) Start Date: 09/13/17 Stop Date: 09/23/17 Status: Completed Bactroban 2% topical ointment 1 appl, TOP, TID, X 5 day, # 22 gm, 0 Refill(s) Start Date: 09/13/17 Stop Date: 09/18/17 Status: Completed ibuprofen 800 mg oral tablet 800 mg=1 tab, PO, Q8H, X 5 day, # 30 tab, 0 Refill(s) Start Date: 09/13/17 Stop Date: 09/18/17 Status: Completed Results No data available for this section [...]
--- OUTSIDE RECORDS SUMMARY | 2018-09-13 05:25 | XMS REPORT | Summary of Care ---
Author Author [facility] Organization [facility] Address Unknown Phone Unavailable Encounter AMARIS Mccurdy(TYLER) [id number] Date(s): 07/12/17 - 07/15/17 [facility] [address] [place] [address]- Encounter Diagnosis Urinary tract infection, site not specified (Final) - Pyonephrosis (Final) - 07/21/17 Morbid (severe) obesity due to excess calories (Final) - Unspecified kidney failure (Final) - Essential (primary) hypertension (Final) - Hyperlipidemia, unspecified (Final) - Dehydration (Final) - Hypothyroidism, unspecified (Final) - Body mass index (BMI) 38.0-38.9, adult (Final) - Discharge Disposition: Home or Self Care Attending Physician: Julio Xiong MD Admitting Physician: Julio Xiong MD Vital Signs 1 2 3 Most recent to oldest [Reference Range]: 162.56 cm (07/13/17 1:32 AM) 162.56 cm (07/12/17 3:15 PM) Height 98.6 DegF (07/15/17 11:56 AM) 98.5 DegF (07/15/17 8:17 AM) 97.9 DegF (07/15/17 4:00 AM) Temperature Oral [96.4-99.1 DegF] 144/95 mmHg *HI* (07/15/17 11:56 AM) 140/107 mmHg (07/15/17 8:17 AM) 146/102 mmHg *HI* (07/15/17 4:00 AM) Blood Pressure [90-140/60-90 mmHg] 18 BRMIN (07/15/17 11:56 AM) 18 BRMIN (07/15/17 8:17 AM) 18 BRMIN (07/15/17 4:00 AM) Respiratory Rate [14-20 BRMIN] 87 bpm (07/15/17 11:56 AM) 80 bpm (07/15/17 8:17 AM) 72 bpm (07/15/17 4:00 AM) Peripheral Pulse Rate [60-100 bpm] 101.818 kg (07/13/17 1:32 AM) 101.818 kg (07/12/17 3:15 PM) Weight 38.53 m2 (07/13/17 1:32 AM) 38.53 m2 (07/12/17 3:15 PM) Body Mass Index Problem List Condition Effective Dates Status Health Status Informant HTN - Active Hypertension(Confirm ed) Hypercholesterolemia Active (Confirmed) Kidney Active stone(Confirmed) Morbid Active obesity(Confirmed) Allergies, Adverse Reactions, Alerts Substance Reaction Severity Status codeine Active Keflex Rash Active Medications Cipro 400 mg, Route: IVPB, ONCE, Dosing Weight 101.818, kg, Priority: STAT, Start date : 07/12/17 19:59:00 [employer], Stop date: 07/12/17 19:59:00 [employer] DEVEL[employer], ABX Indication: Urina ry Tract Infection Start Date: 07/12/17 Stop Date: 07/12/17 Status: Discontinued fentaNYL 50 microgram, Route: IVP, ONCE, Dosing Weight 101.818, kg, Priority: STAT, Start date: 07/12/17 20:11:00 [employer] DEVELOPER, Stop date: 07/12/17 20:11:00 [employer] DEVELOPER Start Date: 07/12/17 Stop Date: 07/12/17 Status: Completed hydromorphone 0.5 mg, 0.5 mL, Route: IV, Drug form: INJ, Q4H, PRN Pain Score 7-10, Start date: 07/13/17 3:10:00 [employer] DEVELOPER, Stop date: 07/13/17 9:00:00 [employer] BI DEVELOPER Notes: Same as: Dilaudid Start Date: 07/13/17 Stop Date: 07/13/17 Status: Completed Imodium A-D 2 mg, 1 cap, Route: PO, Drug form: CAP, Q4H, Dosing Weight 101.818, kg, PRN Diar kirill, Start date: 07/13/17 16:42:00 [employer] DEVELOPER, Duration: 30 day, Stop date: 08/12/17 1 6:41:00 [employer] BI DEVELOPER Notes: (Same as: Imodium) MAX adult dose is 8 caps/day Start Date: 07/13/17 Stop Date: 07/15/17 Status: Discontinued ketOROLAC 15 mg/mL injectable solution 15 mg, 0.5 mL, Route: IVP, Drug form: INJ, Q6H, Dosing Weight 101.818, kg, PRN P ain Score 4-6, Start date: 07/13/17 9:47:00 [employer] BI DEVELOPER, Duration: 4 day, Stop date: 08/29 9:46:00 [employer] BI DEVELOPER Notes: (Same as:Toradol) IV bolus must be given >15 seconds. Give IM administration slowly and deeply into the muscle.Not for use > 4 days MEDICATION WASTE Product Size: 30 mgProduct Wasted: ___ mg Start Date: 07/13/17 Stop Date: 07/15/17 Status: Discontinued Lactated Ringers (Bolus) IV 3,300 mL, 1941.18 ml/hr, Infuse Over: 1.7 hr, Route: IV, 3,300, Drug form: INJ, ONCE, Priority: STAT, Dosing Weight 109.818 kg, Start date: 07/12/17 15:18:00 CS T, Stop date: 07/12/17 15:18:00 SAS BI DEVELOPER Start Date: 07/12/17 Stop Date: 07/12/17 Status: Completed Levaquin 500 mg, 2 tab, Route: PO, Drug form: TAB, [id number], Dosing Weight 101.818, kg, St art date: 07/13/17 8:00:00 [employer] BI DEVELOPER, Duration: 10 day, Stop date: 07/22/17 8:00:00 CS T, ABX Indication: Urinary Tract Infection Notes: Do not give w/antacids, dairy pdt & minerals Take 1 hr before or 2 hr after dairy pdt (Same as:Levaquin) Start Date: 07/13/17 Stop Date: 07/13/17 Status: Discontinued Levaquin 750 mg, 150 mL, Route: IV, Drug form: SOLN, [id number], Start date: 07/13/17 16:00: 00 [employer] BI DEVELOPER, Duration: 30 day, Stop date: 08/11/17 9:00:00 [employer] BI DEVELOPER, ABX Indication: Bacte remia Notes: (Same as:Levaquin) Start Date: 07/13/17 Stop Date: 07/15/17 Status: Discontinued Levaquin 500 mg oral tablet 500 mg=1 tab, PO, Q24H, X 7 day, # 7 tab, 0 Refill(s), Pharmacy: [facility] [id number] Start Date: 07/15/17 Stop Date: 07/22/17 Status: Completed levothyroxine 75 microgram, 1 tab, Route: PO, Drug form: TAB, Daily, Dosing Weight 101.818, kg , Start date: 07/14/17 6:30:00 SAS BI DEVELOPER, Duration: 30 day, Stop date: 08/12/17 6:30:0 0 [employer] BI DEVELOPER Notes: Take 1 hour before or 2 hours after meal; Enteral feeds may interefere wi th the absorption of this medication. (Same as:Synthroid, Levothroid) Start Date: 07/14/17 Stop Date: 07/13/17 Status: Canceled levothyroxine 75 microgram, 1 tab, Route: PO, Drug form: TAB, [id number], Dosing Weight 101.818, k g, Start date: 07/15/17 6:30:00 [employer] DEVELOPER, Duration: 30 day, Stop date: 08/13/17 6:30: 00 SAS BI DEVELOPER Notes: Take 1 hour before or 2 hours after meal; Enteral feeds may interefere wi th the absorption of this medication. (Same as:Synthroid, Levothroid) Start Date: 07/15/17 Stop Date: 07/15/17 Status: Discontinued Lipitor 10 mg, 1 tab, Route: PO, Drug form: TAB, Daily, Start date: 07/14/17 9:00:00 SAS BI DEVELOPER , Duration: 30 day, Stop date: 08/12/17 9:00:00 SAS BI DEVELOPER Notes: (Same As: Lipitor) Start Date: 07/14/17 Stop Date: 07/15/17 Status: Discontinued lisinopril 5 mg, 1 tab, Route: PO, Drug form: TAB, Daily, Dosing Weight 101.818, kg, Start date: 07/14/17 9:00:00 SAS BI DEVELOPER, Duration: 30 day, Stop date: 08/12/17 9:00:00 SAS BI DEVELOPER Notes: (Same as: Prinivil, Zestril) Start Date: 07/14/17 Stop Date: 07/15/17 Status: Discontinued lovastatin 20 mg, Route: PO, Daily, Dosing Weight 101.818, kg, Start date: 07/14/17 9:00:00 SAS BI DEVELOPER, Duration: 30 day, Stop date: 08/12/17 9:00:00 [employer] BI DEVELOPER Start Date: 07/14/17 Stop Date: 07/13/17 Status: Deleted meropenem 1,000 mg, Route: IVPB, Drug form: PDR/INJ, ONCE, Dosing Weight 101.818, kg, Prio rity: STAT, Start date: 07/12/17 20:09:00 SAS BI DEVELOPER, Stop date: 07/12/17 20:09:00 SAS BI DEVELOPER, ABX Indication: Intra-abdominal Infection Start Date: 07/12/17 Stop Date: 07/12/17 Status: Completed morphine Sulfate 4 mg, Route: IVP, Q4H, Dosing Weight 101.818, kg, PRN Pain Score 7-10, Start wing e: 07/13/17 1:38:00 SAS BI DEVELOPER, Duration: 30 day, Stop date: 08/12/17 1:37:00 SAS BI DEVELOPER Start Date: 07/13/17 Stop Date: 07/13/17 Status: Deleted morphine Sulfate 12 mg, 6 mL, Route: PO, Drug form: SOLN, Q4H, PRN Pain Score 7-10, Start date: 0 07/13/17 10:00:00 SAS BI DEVELOPER, Duration: 30 day, Stop date: 08/12/17 9:59:00 SAS BI DEVELOPER Notes: (Same as:MORPhine Sulfate) Start Date: 07/13/17 Stop Date: 07/15/17 Status: Discontinued [place] 5/325 oral tablet 1 tab, Route: PO, Drug Form: TAB, Dosing Weight 101.818, kg, Q6H, PRN Pain Score 1-3, Start date: 07/13/17 13:46:00 SAS BI DEVELOPER, Duration: 30 day, Stop date: 08/12/17 1 3:45:00 SAS BI DEVELOPER Notes: (Same as: [place]on 325/5) Do not exceed 4gm/day of acetaminophen. Start Date: 07/13/17 Stop Date: 07/15/17 Status: Discontinued NS (Bolus) IV 1,000 mL, 1,000 ml/hr, Infuse Over: 1 hr, Route: IV, ONCE, Priority: STAT, Dosin g Weight 101.818 kg, Start date: 07/12/17 16:10:00 SAS BI DEVELOPER, Stop date: 07/12/17 16:1 0:00 SAS BI DEVELOPER Start Date: 07/12/17 Stop Date: 07/12/17 Status: Completed ondansetron 4 mg, 2 mL, Route: IVP, Drug form: INJ, Q6H, Dosing Weight 101.818, kg, PRN Naus ea & Vomiting, Start date: 07/13/17 1:38:00 SAS BI DEVELOPER, Duration: 30 day, Stop date: 08/12/17 1:37:00 SAS BI DEVELOPER Notes: (Same as: Rand) MEDICATION WASTE Product Size: 4 mgProduct Was radha: ___ mg Start Date: 07/13/17 Stop Date: 07/15/17 Status: Discontinued Rocephin 1 gm, Route: IVPB, Drug form: PDR/INJ, [id number], Dosing Weight 101.818, kg, Start date: 07/13/17 14:00:00 SAS BI DEVELOPER, Duration: 10 day, Stop date: 07/22/17 14:00:00 SAS BI DEVELOPER, ABX Indication: Bacteremia Start Date: 07/13/17 Stop Date: 07/13/17 Status: Deleted Saline Flush 0.9% 10 mL, Route: IVP, Drug Form: INJ, Dosing Weight 101.818, kg, PRN, PRN Line Flus h, Start date: 07/12/17 15:18:00 SAS BI DEVELOPER, Duration: 30 day, Stop date: 08/11/17 15:1 7:00 SAS BI DEVELOPER Notes: (Same as: BD Posiflush) Start Date: 07/12/17 Stop Date: 07/15/17 Status: Discontinued Saline Flush 0.9% 10 ml, Route: IVP, Drug Form: INJ, Dosing Weight 101.818, kg, PRN, PRN Line Flus h, Start date: 07/13/17 1:38:00 SAS BI DEVELOPER, Duration: 30 day, Stop date: 08/12/17 1:37: 00 SAS BI DEVELOPER Notes: (Same as: BD Posiflush) Start Date: 07/13/17 Stop Date: 07/15/17 Status: Discontinued Sodium Chloride 0.9% (Bolus) IV 1,000 mL, 1000 ml/hr, Infuse Over: 1 hr, Route: IV, 1,000, Drug form: INJ, ONCE, Priority: STAT, Dosing Weight 101.818 kg, Start date: 07/12/17 23:52:00 SAS BI DEVELOPER, St op date: 07/12/17 23:52:00 SAS BI DEVELOPER Start Date: 07/12/17 Stop Date: 07/13/17 Status: Completed Sodium Chloride 0.9% IV 1,000 mL 1,000 mL, Rate: 125 ml/hr, Infuse over: 8 hr, Route: IV, Dosing Weight 101.818 k g, Total Volume: 1,000, Start date: 07/13/17 1:38:00 SAS BI DEVELOPER, Duration: 30 day, Stop date: 08/12/17 1:37:00 SAS BI DEVELOPER, 2.18, m2 Start Date: 07/13/17 Stop Date: 07/15/17 Status: Discontinued tobramycin + Sodium Chloride 0.9% IV 100 mL 450 mg, 11.25 mL, Route: IVPB, ONCE, Dosing Weight 101.818, kg, CrCl >/=30 ml/min, Time Critical Medication, Priority: STAT, Start date: 07/12/17 15:20:00 SAS BI DEVELOPER, Stop date: 07/12/17 15:20:00 SAS BI DEVELOPER Notes: TIME CRITICAL MEDICATION(Same As: Nebcin)For adult patients only: Round t o nearest 10 mg per Medical Staff approval Start Date: 07/12/17 Stop Date: 07/12/17 Status: Discontinued Tylenol 500 mg, 1 tab, Route: PO, Drug form: TAB, Q6H, Dosing Weight 101.818, kg, PRN Pa in 1-3/Temp > 100.4 F, Start date: 07/14/17 12:09:00 SAS BI DEVELOPER, Duration: 30 day, Stop date: 08/13/17 12:08:00 SAS BI DEVELOPER Notes: Max acetaminophen 4000 mg/day (4 gm/day). (Same as: Tylenol Extra Streng th) Start Date: 07/14/17 Stop Date: 07/15/17 Status: Discontinued Tylenol 1,000 mg, 2 tab, Route: PO, Drug form: TAB, ONCE, Dosing Weight 101.818, kg, Sta rt date: 07/12/17 20:11:00 SAS BI DEVELOPER, Stop date: 07/12/17 20:11:00 SAS BI DEVELOPER Notes: Max acetaminophen 4000 mg/day (4 gm/day). (Same as: Tylenol Extra Streng th) Start Date: 07/12/17 Stop Date: 07/13/17 Status: Completed vitamin E 400 IntlUnit, 1 cap, Route: PO, Drug form: CAP, Daily, Dosing Weight 101.818, kg , Start date: 07/14/17 9:00:00 SAS BI DEVELOPER, Duration: 30 day, Stop date: 08/12/17 9:00:0 0 SAS BI DEVELOPER Start Date: 07/14/17 Stop Date: 07/15/17 Status: Discontinued Zofran 4 mg, Route: IVP, Drug form: INJ, ONCE, Dosing Weight 101.818, kg, Priority: STA T, Start date: 07/12/17 20:11:00 SAS BI DEVELOPER, Stop date: 07/12/17 20:11:00 SAS BI DEVELOPER Start Date: 07/12/17 Stop Date: 07/12/17 Status: Completed ZyrTEC 10 mg, 2 tab, Route: PO, Drug form: TAB, Daily, Dosing Weight 101.818, kg, Start date: 07/14/17 9:00:00 SAS BI DEVELOPER, Duration: 30 day, Stop date: 08/12/17 9:00:00 SAS BI DEVELOPER Notes: (Same As: Zyrtec) Start Date: 07/14/17 Stop Date: 07/15/17 Status: Discontinued Results ELECTROLYTES 1 2 3 Most recent to oldest [Reference Range]: 140 mEq/L (07/14/17 6:31 AM) 138 mEq/L (07/13/17 3:37 AM) 135 mEq/L (07/12/17 3:36 PM) Sodium Lvl [135-145 mEq/L] 3.6 mEq/L (07/14/17 6:31 AM) 3.3 mEq/L *LOW* (07/13/17 3:37 AM) 3.9 mEq/L (07/12/17 3:36 PM) Potassium Lvl [3.5-5.1 mEq/L] 106 mEq/L (07/14/17 6:31 AM) 102 mEq/L (07/13/17 3:37 AM) 99 mEq/L (07/12/17 3:36 PM) Chloride Lvl [95-109 mEq/L] 25 mEq/L (07/14/17 6:31 AM) 25 mEq/L (07/13/17 3:37 AM) 20 mEq/L *LOW* (07/12/17 3:36 PM) CO2 [24-32 mEq/L] 12.6 mEq/L (07/14/17 6:31 AM) 14.3 mEq/L (07/13/17 3:37 AM) 19.9 mEq/L (07/12/17 3:36 PM) AGAP [10.0-20.0 mEq/L] CHEM PANEL 1 2 3 Most recent to oldest [Reference Range]: 0.63 mg/dL (07/14/17 6:31 AM) 0.84 mg/dL (07/13/17 3:37 AM) 1.31 mg/dL (07/12/17 3:36 PM) Creatinine Lvl [0.50-1.40 mg/dL] 111 mL/min/1.73m2 1 *NA* (07/14/17 6:31 AM) 86 mL/min/1.73m2 2 *NA* (07/13/17 3:37 AM) 50 mL/min/1.73m2 3 *NA* (07/12/17 3:36 PM) eGFR 11 mg/dL (07/14/17 6:31 AM) 10 mg/dL (07/13/17 3:37 AM) 16 mg/dL (07/12/17 3:36 PM) BUN [7-22 mg/dL] 12 (07/13/17 3:37 AM) 12 (07/12/17 3:36 PM) B/C Ratio [6-25] 100 mg/dL *HI* (07/14/17 6:31 AM) 111 mg/dL *HI* (07/13/17 3:37 AM) 79 mg/dL (07/12/17 3:36 PM) Glucose Lvl [70-99 mg/dL] 6.6 g/dL (07/13/17 3:37 AM) 8.7 g/dL *HI* (07/12/17 3:36 PM) Total Protein [6.4-8.4 g/dL] 2.9 g/dL *LOW* (07/13/17 3:37 AM) 3.6 g/dL (07/12/17 3:36 PM) Albumin Lvl [3.5-5.0 g/dL] 3.7 g/dL (07/13/17 3:37 AM) 5.1 g/dL *HI* (07/12/17 3:36 PM) Globulin [2.7-4.2 g/dL] 0.8 (07/13/17 3:37 AM) 0.7 (07/12/17 3:36 PM) A/G Ratio [0.7-1.6] 8.4 mg/dL *LOW* (07/14/17 6:31 AM) 8.0 mg/dL *LOW* (07/13/17 3:37 AM) 8.7 mg/dL (07/12/17 3:36 PM) Calcium Lvl [8.5-10.5 mg/dL] 1.8 mg/dL (07/13/17 3:37 AM) Magnesium Lvl [1.8-2.4 mg/dL] 13 unit/L (07/13/17 3:37 AM) 33 unit/L (07/12/17 3:36 PM) ALT [0-65 unit/L] 9 unit/L (07/13/17 3:37 AM) 37 unit/L (07/12/17 3:36 PM) AST [0-37 unit/L] 71 unit/L (07/13/17 3:37 AM) 92 unit/L (07/12/17 3:36 PM) Alk Phos [39-136 unit/L] 1.0 mg/dL (07/13/17 3:37 AM) 1.2 mg/dL (07/12/17 3:36 PM) Bili Total [0.2-1.3 mg/dL] 0.9 mMol/L (07/12/17 3:36 PM) Lactic Acid Lvl [0.5-2.2 mMol/L] <0.05 (07/12/17 3:36 PM) Procalcitonin Lvl [0.00-0.10] 1Result Comment: The eGFR is calculated using the [...] from the National Kid[employer] Disease Education Program ( NKDEP) which additionally recommends that when the eGFR is used in patients with extremes of body mass index for purposes of drug dosing, the eGFR should be mul tiplied by the estimated BMI. 2Result Comment: The eGFR is calculated using the [...] from the National Kidney Disease Education Program ( NKDEP) which additionally recommends that when the eGFR is used in patients with extremes of body mass index for purposes of drug dosing, the eGFR should be mul tiplied by the estimated BMI. 3Result Comment: The eGFR is calculated using the [...] from the National Kidney Disease Education Program ( NKDEP) which additionally recommends that when the eGFR is used in patients with extremes of body mass index for purposes of drug dosing, the eGFR should be mul tiplied by the estimated BMI. CARDIAC ENZYMES 1 2 3 Most recent to oldest [Reference Range]: 95 unit/L (07/12/17 3:36 PM) Total CK [12-191 unit/L] <0.02 ng/mL (07/12/17 3:36 PM) Troponin-I [0.00-0.40 ng/mL] URINE AND STOOL 1 2 3 Most recent to oldest [Reference Range]: Cloudy *ABN* (07/12/17 8:02 PM) UA Turbidity [Clear] Brown *ABN* (07/12/17 8:02 PM) UA Color [Yellow] 6.5 (07/12/17 8:02 PM) UA pH [5.0-8.0] 1.025 (07/12/17 8:02 PM) UA Spec Grav [<=1.030] Negative (07/12/17 8:02 PM) UA Glucose [Negative] Large *ABN* (07/12/17 8:02 PM) UA Blood [Negative] 40 mg/dL *ABN* (07/12/17 8:02 PM) UA Ketones [Negative mg/dL] 100 mg/dL *ABN* (07/12/17 8:02 PM) UA Protein [Negative mg/dL] 1.0 EU/dL (07/12/17 8:02 PM) UA Urobilinogen [0.1-1.0 EU/dL] Small *ABN* (07/12/17 8:02 PM) UA Bili [Negative] Trace *ABN* (07/12/17 8:02 PM) UA Leuk Est [Negative] Negative (07/12/17 8:02 PM) UA Nitrite [Negative] 9 /HPF *HI* (07/12/17 8:02 PM) UA WBC [0-5 /HPF] >182 /HPF *HI* (07/12/17 8:02 PM) UA RBC [0-2 /HPF] Many /HPF *ABN* (07/12/17 8:02 PM) UA Bacteria [None Seen /HPF] Many /LPF *ABN* (07/12/17 8:02 PM) UA Sq Epi [Few /LPF] Many /LPF *ABN* (07/12/17 8:02 PM) UA Mucus [None Seen /LPF] HEMATOLOGY 1 2 3 Most recent to oldest [Reference Range]: 11.0 K/CMM *HI* (07/14/17 6:31 AM) 13.2 K/CMM *HI* (07/13/17 3:37 AM) 19.4 K/CMM *HI* (07/12/17 3:36 PM) WBC [3.7-10.4 K/CMM] 3.89 M/CMM *LOW* (07/14/17 6:31 AM) 4.11 M/CMM *LOW* (07/13/17 3:37 AM) 4.88 M/CMM (07/12/17 3:36 PM) RBC [4.20-5.40 M/CMM] 10.5 g/dL *LOW* (07/14/17 6:31 AM) 11.1 g/dL *LOW* (07/13/17 3:37 AM) 13.3 g/dL (07/12/17 3:36 PM) Hgb [12.0-16.0 g/dL] 31.3 % *LOW* (07/14/17 6:31 AM) 33.1 % *LOW* (07/13/17 3:37 AM) 39.4 % (07/12/17 3:36 PM) Hct [36.0-48.0 %] 80.5 fL (07/14/17 6:31 AM) 80.5 fL (07/13/17 3:37 AM) 80.8 fL (07/12/17 3:36 PM) MCV [80.0-98.0 fL] 27.1 pg (07/14/17 6:31 AM) 27.1 pg (07/13/17 3:37 AM) 27.2 pg (07/12/17 3:36 PM) MCH [27.0-31.0 pg] 33.7 g/dL (07/14/17 6:31 AM) 33.7 g/dL (07/13/17 3:37 AM) 33.7 g/dL (07/12/17 3:36 PM) MCHC [32.0-36.0 g/dL] 13.4 % (07/14/17 6:31 AM) 13.6 % (07/13/17 3:37 AM) 13.6 % (07/12/17 3:36 PM) RDW [11.5-14.5 %] 8.7 fL (07/14/17 6:31 AM) 9.1 fL (07/13/17 3:37 AM) 9.2 fL (07/12/17 3:36 PM) MPV [7.4-10.4 fL] 268 K/CMM (07/14/17 6:31 AM) 267 K/CMM (07/13/17 3:37 AM) 338 K/CMM (07/12/17 3:36 PM) Platelet [133-450 K/CMM] 71.7 % (07/14/17 6:31 AM) 76.4 % *HI* (07/13/17 3:37 AM) 81.7 % *HI* (07/12/17 3:36 PM) Segs [45.0-75.0 %] 15.6 % *LOW* (07/14/17 6:31 AM) 11.7 % *LOW* (07/13/17 3:37 AM) 9.2 % *LOW* (07/12/17 3:36 PM) Lymphocytes [20.0-40.0 %] 8.9 % (07/14/17 6:31 AM) 10.4 % (07/13/17 3:37 AM) 7.4 % (07/12/17 3:36 PM) Monocytes [2.0-12.0 %] 3.3 % (07/14/17 6:31 AM) 1.1 % (07/13/17 3:37 AM) 1.4 % (07/12/17 3:36 PM) Eosinophils [0.0-4.0 %] 0.5 % (07/14/17 6:31 AM) 0.4 % (07/13/17 3:37 AM) 0.3 % (07/12/17 3:36 PM) Basophils [0.0-1.0 %] 7.9 K/CMM (07/14/17 6:31 AM) 10.1 K/CMM *HI* (07/13/17 3:37 AM) 15.9 K/CMM *HI* (07/12/17 3:36 PM) Segs-Bands # [1.5-8.1 K/CMM] 1.7 K/CMM (07/14/17 6:31 AM) 1.5 K/CMM (07/13/17 3:37 AM) 1.8 K/CMM (07/12/17 3:36 PM) Lymphocytes # [1.0-5.5 K/CMM] 1.0 K/CMM *HI* (07/14/17 6:31 AM) 1.4 K/CMM *HI* (07/13/17 3:37 AM) 1.4 K/CMM *HI* (07/12/17 3:36 PM) Monocytes # [0.0-0.8 K/CMM] 0.4 K/CMM (07/14/17 6:31 AM) 0.1 K/CMM (07/13/17 3:37 AM) 0.3 K/CMM (07/12/17 3:36 PM) Eosinophils # [0.0-0.5 K/CMM] 0.1 K/CMM (07/14/17 6:31 AM) 0.1 K/CMM (07/13/17 3:37 AM) 0.1 K/CMM (07/12/17 3:36 PM) Basophils # [0.0-0.2 K/CMM] 13.8 seconds (07/12/17 3:36 PM) PT [12.0-14.7 seconds] 1.06 (07/12/17 3:36 PM) INR [0.85-1.17] 29.9 seconds (07/12/17 3:36 PM) PTT [22.9-35.8 seconds] Immunizations Given and Recorded Vaccine Date Status [...] No entered on: 09/20/17 Assessment and Plan Extracted from: Title: Clinical Document Author: Julio Xiong MD Date: 07/15/17 Discharge Summary Name: Aurelia Rain Record Number: [id number] Admission Date: 07/13/2017 Discharge Date: 07/15/2017 Copies to: Diagnoses: Acute pyelonephritis Renal stone Hypertension Procedures: Chief Complaint I have pain in my abdomen HPI: See the HPI PMH: See the hpi Hospital course: 42-year-old female was admitted with acute onset of pain on the left side with the fever intensity. Patient found to be having acute pyelonephritis. Patient having recently stent placement by Dr. Martin. Patient is responded the antibiotic very well. Right now she is fever free no pain no nausea no vomiting. Also seen by Dr. Shah that he cleared the patient also I am going to send the patient home Discharge condition: Stable Recent signficant physical findings: Vitals are stable no pain no tenderness Recent significant lab & radiology results: Labs (Last four charted values) WBC H 11.0(JUL 14)H 13.2(JUL 13)H 19.4(JUL 12) Hgb L 10.5(JUL 14)L 11.1(JUL 13)13.3(JUL 12) Hct L 31.3(JUL 14)L 33.1(JUL 13)39.4(JUL 12) Plt 268(JUL 14)267(JUL 13)338(JUL 12) Na 140(JUL 14)138(JUL 13)135(JUL 12) K 3.6(JUL 14)L 3.3(JUL 13)3.9(JUL 12) CO2 25(JUL 14)25(JUL 13)L 20(JUL 12) Cl 106(JUL 14)102(JUL 13)99(JUL 12) Cr 0.63(JUL 14)0.84(JUL 13)1.31(JUL 12) BUN 11(JUL 14)10(JUL 13)16(JUL 12) Glucose Random H 100(JUL 14)H 111(JUL 13)79(JUL 12) Mg 1.8(JUL 13) Ca L 8.4(JUL 14)L 8.0(JUL 13)8.7(JUL 12) PT 13.8(JUL 12) INR 1.06(JUL 12) PTT 29.9(JUL 12) Troponin <0.02(JUL 12) Total CK 95(JUL 12) Discharge therapy: Medications continue all home medication Levaquin 500 mg p.o. daily for 7 days Diet 2 g sodium diet Activity as tolerated Follow up with PCP in 1 week
--- OUTSIDE RECORDS SUMMARY | 2018-09-13 05:25 | XMS REPORT ---
Author Author [facility] Address Unknown Phone Unavailable Care Team Providers Care Human Resources Support Specialist Name Role Phone Bruno HENRIQUEZ Unavailable Unavailable Problems This patient has no known problems. Allergies, Adverse Reactions, Alerts This patient has no known allergies or adverse reactions. Medications This patient has no known medications. Results Test Description Test Time Test Comments Text Results Atomic Results Result Comments BREAST ULTRASOUND LEFT 2018-09-07 13:30:09 - DIAG MAMM LEFT CLARE CAD DIGITALUNILATERAL LEFT DIGITAL DIAGNOSTIC MAMMOGRAM 3D/2D WITH CAD: 09/07/2018CLINICAL: Abnormal Mammogram. Digital breast tomosynthesis was performed in addition to routine CC and MLO views. Current mammographic images were evaluated by either a [employer] M- Vu or a [employer] ImageChecker CAD (computer aided detection system). Comparison is made to exams dated 08/10/2018 mammogram, 08/09/2017 mammogram, and 04/20/2016 mammogram - [facility]. There are scattered fibroglandular tissues in the left breast. There are benign appearing scattered calcifications in the left breast. No suspicious mass, architectural distortion, malignant type calcification, or lymph node abnormality detected. INCOMPLETE ASSESSMENT: ADDITIONAL IMAGING EVALUATION RECOMMENDEDNo mammographic evidence of malignancy. Proceed to same day ultrasound. - BREAST ULTRASOUND LEFTULTRASOUND OF LEFT BREAST AND LEFT AXILLA: 09/07/2018Comparison is made to exams dated 08/10/2018 mammogram, 08/09/2017 mammogram, and 04/20/2016 mammogram - [facility]. Color flow, real-time, and Doppler ultrasound of the left breast and axilla were performed. Morrison scale images of the real-time examination were reviewed. No abnormalities were seen sonographically in the left breast or the left axilla. IMPRESSION: BENIGN There is no sonographic evidence of malignancy. Resume annual screening mammography in one year. Jose Bernard M.D. et/:09/07/2018 13:30:09 Entry: - 09/09/2018 14:03:40copy to: Hanna Montgomery MD, ph: [phone], fax: [phone] Technologist: Sada Chan , [facility] sent: BIRADS 1-2 Combo FU Letter Mammogram BI- RADS: 0 Indeterminate Ultrasound BI-RADS: 2 Benign DIAG MAMM LEFT CLARE CAD DIGITAL 2018-09-07 13:30:09 - DIAG MAMM LEFT CLARE CAD DIGITALUNILATERAL LEFT DIGITAL DIAGNOSTIC MAMMOGRAM 3D/2D WITH CAD: 09/07/2018CLINICAL: Abnormal Mammogram. Digital breast tomosynthesis was performed in addition to routine CC and MLO views. Current mammographic images were evaluated by either a [employer] M-Vu or a [employer] ImageChecker CAD (computer aided detection system). Comparison is made to exams dated 08/10/2018 mammog david, 08/09/2017 mammogram, and [facility]. There are scattered fibroglandular tissues in the left breast. There are benign appearing scattered calcifications in the left breast. No suspicious mass, architectural distortion, malignant type calcification, or lymph node abnormality detected. INCOMPLETE ASSESSMENT: ADDITIONAL IMAGING EVALUATION RECOMMENDEDNo mammographic evidence of malignancy. Proceed to same day ultrasound. - BREAST ULTRASOUND LEFTULTRASOUND OF LEFT BREAST AND LEFT AXILLA: 09/07/2018Comparison is made to exams dated 08/10/2018 mammogram, 08/09/2017 mammogram, and 04/20/2016 [facility]. Color flow, real-time, and Doppler ultrasound of the left breast and axilla were performed. Morrison scale images of the real-time examination were reviewed. No abnormalities were seen sonographically in the left breast or the left axilla. IMPRESSION: BENIGN There is no sonographic evidence of malignancy. Resume annual screening mammography in one year. Jose Bernard M.D. et/:09/07/2018 13:30:09 Entry: - 09/09/2018 14:03:40copy to: Hanna Montgomery MD, ph: [phone], fax: [phone] Technologist: Sada Chan FW, [facility] sent: BIRADS 1-2 Combo FU Letter Mammogram BI-RADS: 0 Indeterminate Ultrasound BI-RADS: 2 Benign SCR MAMM BILATERAL CLARE CAD DIGITAL 2018-08-15 13:39:40 - SCR MAMM BILATERAL CLARE CAD DIGITALBILATERAL DIGITAL SCREENING MAMMOGRAM 3D/2D WITH CAD: 08/10/2018CLINICAL: Asymptomatic. Digital breast tomosynthesis was performed in addition to routine CC and MLO views. Current mammographic images were evaluated by either a [employer] M-Vu or a [employer] ImageChecker CAD (computer aided detection system). Comparison is made to exams dated 08/09/2017 mammogram, 04/20 mammogram, and 08/18/2017 mammogram - [facility] There are scattered fibroglandular tissues in both breasts. There is questionable architectural distortion in the upper central left breast (12 o'clock), middle depth, 8 cm from the nipple, which is best seen on the left CC view (clare slice 50). There are surrounding loosely grouped calcifications in a regional distribution, which appear unchanged since 2016.No other significant masses, calcifications, or other findings are seen in either breast. IMPRESSION: INCOMPLETE ASSESSMENT: ADDITIONAL IMAGING EVALUATION RECOMMENDEDQuestionable architectural distortion with surrounding calcifications in the upper central left breast is indeterminate, best seen on the left CC view (clare slice 50). Additional views with possible ultrasound are recommended. Dayan Jackson D.O. al/:08/15/2018 13:39:40 copy to: Telly Bailey DO, ph: [phone], fax: [phone] Technologist: Bisi Muro FW, [facility] sent: Additional Imaging Mammogram BI-RADS: 0 Indeterminate ANKLE 3 + VIEWS RIGHT 2018-02-21 16:54:00 [place] [address] Patient Name: PEG LOMBARDI MR #: [id number] : 1975 Age/Sex: 43/F Req #: [id number] Adm Physician: Ordered by: KAMARI HENRIQUEZ MD Report #: [id number] Location: ER Room/Bed: Procedure: [id number] DX/ANKLE 3 + VIEWS RIGHT Exam Date: 02/21/18 Exam Time: 1549 REPORT STATUS: Signed RIGHT KNEE - 3 VIEWS RIGHT TIBIA AND FIBULA - 2 VIEWS RIGHT ANKLE - views HISTORY: Pain, "rolled her ankle-felt pop", history of several fractures COMPARISON: None available. FINDINGS: Bones: An irregular lucent line at the tip of the lateral malleolus. Additional 2 mm calcific density between the tip of the lateral malleolus and talus. Subtle linear heterogeneous increased density of the dorsal calcaneus, which may reflect the sequela of remote healed fracture. Joints: Minimal medial femoral compartment degenerative changes of the knee. The ankle mortise is symmetric. Soft tissues: Mild lateral ankle soft tissue swelling. IMPRESSION: Acute memory displaced fracture involving the tip of the lateral malleolus. Signed by: Dr. Jose Alfredo Nguyen D.O., M.M.M. on 02/21/2018 5:01 PM Dictated By: JOSE ALFREDO NGUYEN DO 00 Transcribed By: MAXX on 02/21/181700 COPY TO: KAMARI HENRIQUEZ MD LOWER LEG RIGHT 2018-02-21 16:54:00 [place] [address] Patient Name: PEG LOMBARDI MR #: [id number] : 1975 Age/Sex: 43/F Req #: [id number] Adm Physician: Ordered by: KAMARI HENRIQUEZ MD Report #: [id number] Location: ER Room/Bed: Procedure: [id number] DX/LOWER LEG RIGHT Exam Date: 02/21/18 Exam Time: 1549 REPORT STATUS: Signed RIGHT KNEE - 3 VIEWS RIGHT TIBIA AND FIBULA - 2 VIEWS RIGHT ANKLE - views HISTORY: Pain, "rolled her ankle-felt pop", history of several fractures COMPARISON: None available. FINDINGS: Bones: An ir regular lucent line at the tip of the lateral malleolus. Additional 2 mm calcific density between the tip of the lateral malleolus and talus. Subtle linear heterogeneous increased density of the dorsal calcaneus, which may reflect the sequela of remote healed fracture. Joints: Minimal medial femoral compartment degenerative changes of the knee. The ankle mortise is symmetric. Soft tissues: Mild lateral ankle soft tissue swelling. IMPRESSION: Acute memory displaced fracture involving the tip of the lateral malleolus. Signed by: Dr. Jose Alfredo Nguyen DCheliO., M.M.M. on 02/21/2018 5:01 PM Dictated By: JOSE ALFREDO NGUYEN DO 00 Transcribed By: MAXX on 02/21/181700 COPY TO: KAMARI HENRIQUEZ MD KNEE RIGHT THREE VIEWS 2018-02-21 16:54:00 [place] [address] Patient Name: PEG LOMBARDI MR #: [id number] : 1975 Age/Sex: 43/F Req #: [id number] Adm Physician: Ordered by: KAMARI HENRIQUEZ MD Report #: [id number] Location: ER Room/Bed: Procedure: [id number] DX/KNEE RIGHT THREE VIEWS Exam Date: 02/21/18 Exam Time: 1549 REPORT STATUS: Signed RIGHT KNEE - 3 VIEWS RIGHT TIBIA AND FIBULA - 2 VIEWS RIGHT ANKLE - views HISTORY: Pain, "rolled her ankle-felt pop", history of several fractures COMPARISON: None available. FINDINGS: Bones: An irregular lucent line at the tip of the lateral malleolus. Additional 2 mm calcific density between the tip of the lateral malleolus and talus. Subtle linear heterogeneous increased density of the dorsal calcaneus, which may reflect the sequela of remote healed fracture. Joints: Minimal medial femoral compartment degenerative changes of the knee. The ankle mortise is symmetric. Soft tissues: Mild lateral ankle soft tissue swelling.
--- OUTSIDE RECORDS SUMMARY | 2018-09-13 05:25 | XMS REPORT | Summary of Care ---
Author Author [facility] Organization [facility] Address Unknown Phone Unavailable Encounter HQ Mariontr_cielo(FIN) [id number] Date(s): 09/06/17 - 09/06/17 [facility] [address] [place] [address]- Encounter Diagnosis Calculus of kidney with calculus of ureter (Final) - 09/10/17 Discharge Disposition: Home or Self Care Attending Physician: Tavares Givens MD Referring Physician: Tavares Givens MD Vital Signs No data available for this section Problem List Condition Effective Dates Status Health Status Informant HTN - Active Hypertension(Confirm ed) Hypercholesterolemia Active (Confirmed) Kidney Active stone(Confirmed) Morbid Active obesity(Confirmed) Allergies, Adverse Reactions, Alerts Substance Reaction Severity Status codeine Active Keflex Rash Active Medications No data available for this section Results No data available for this section [...]
--- OUTSIDE RECORDS SUMMARY | 2018-09-13 05:25 | XMS REPORT | Summary of Care ---
Author Author [facility] Organization [facility] Address Unknown Phone Unavailable Encounter HQ Encntr_aliranjeet(FIN) [id number] Date(s): 10/25/17 - 10/25/17 [facility] [address] [place] [address]- [phone] Discharge Disposition: Home or Self Care Attending Physician: Lupillo Fenton MD Vital Signs No data available for [...]
--- OUTSIDE RECORDS SUMMARY | 2018-09-13 05:25 | XMS REPORT | Summary of Care ---
Author Author [facility] Organization [facility] Address Unknown Phone Unavailable Encounter AMARIS Mccurdy(FIN) [id number] Date(s): 09/20/17 - 09/20/17 [facility] [address] [facility], [address] [place] [address] [phone] Discharge Disposition: Home or Self Care Attending [...]
--- OUTSIDE RECORDS SUMMARY | 2018-09-13 05:25 | XMS REPORT | Summary of Care ---
Author Author [facility] Organization [facility] Address Unknown Phone Unavailable Encounter AMARIS Mccurdy(FIN) [id number] Date(s): 09/20/17 - 09/20/17 [facility] [address] [place] [address] [phone] Discharge Disposition: Home or Self Care Attending [...]
--- NOTE | 2018-09-13 07:15 | NUR ---
SPIRITUAL CARE - Pre-Surgery Assessment: Pt in bed. Pt's roommate and friend at bedside. Pt reported supportive attention from family and friends. Intervention: I provided pastoral presence, hospitality, and sympathetic listening. I acquainted pt with availability of weaver hand while hospitalized. Outcome: Pt expressed appreciation for visit. No need for follow up indicated at this time. LAZARUS Maldonadolain Spiritual Care Department O: [phone] Pager: [phone] ([phone] number calling from)
[2018-09-13 09:45] VITALS: BP 113/76
--- NOTE | 2018-09-13 16:28 | Operative Report ---
DATE OF PROCEDURE: 09/13/2018 SURGEON: Jose Mott MD PREOPERATIVE DIAGNOSIS: Right hand carpal tunnel syndrome. POSTOPERATIVE DIAGNOSES: 1. Right hand carpal tunnel syndrome. 2. Flexor tenosynovitis right wrist. PROCEDURE: 1. Right hand open carpal tunnel release. 2. Flexor tenosynovectomy right wrist. ANESTHESIA: General. HISTORY: The patient is a 43-year-old with EMG-proven right hand carpal tunnel syndrome. Risks, benefits and alternatives of treatment were discussed with the patient. The patient is prepared to undergo the procedure as outlined. DESCRIPTION OF PROCEDURE: The patient was brought to the operating theater. After the induction of adequate general inhalation anesthesia, the patient was prepped and draped in the supine position. A time out was performed by the entire operating room team. A 2.5 cm incision was marked out in the intrathenar space. The right upper extremity was exsanguinated, and a tourniquet was inflated to a pressure of 250 mmHg. The incision was made through the skin and subcutaneous tissues and all venous tributaries were controlled with bipolar cautery. The incision was deepened through the palmar fascia until the transverse carpal ligament was identified. The ligament was sharply sectioned, taking care to protect and preserve the median nerve underlying it. After the complete width of the ligament had been transected, the distal volar forearm fascia was divided under direct view. Proliferative flexor tenosynovium was noticed to encompass the median nerve and this was radically excised. After performing this maneuver, the nerve was noted to lie adequately decompressed. The wound was copiously irrigated with bacteriostatic saline, closed with 5-0 nylon in an interrupted horizontal mattress fashion. A Marcaine field block was performed at the operative site. Tourniquet was deflated. All of the fingers pinked up nicely and a sterile bulking conforming bandage was applied to the hand and the wrist. A fiberglass splint was fashioned to maintain the wrist in a modest amount of extension. This was held in place with a loosely wrapped Jon wrap. The patient tolerated the procedure well and was brought to the recovery room in satisfactory condition and discharged with a postoperative instruction sheet as well as a followup appointment. MD JN Jeong/RANDALLL /[id number]
== END | disposition home or self-care (01) ==
LOC: OR 05:21
PROVIDERS: ATTEND Plastic Surgery
DX: M65.841 Other synovitis and tenosynovitis, right hand (principal); G56.01 Carpal tunnel syndrome, right upper limb; I10 Essential (primary) hypertension; E03.9 Hypothyroidism, unspecified; R53.1 Weakness; R42 Dizziness and giddiness; N20.0 Calculus of kidney; Z88.6 Allergy status to analgesic agent; Z88.1 Allergy status to other antibiotic agents; Z88.0 Allergy status to penicillin; Z01.810 Encounter for preprocedural cardiovascular examination
CPT/HCPCS: 25115; 93005; J1100; J2001; J2250; J2370; J2405; J2550; J2704; J2765

== ENCOUNTER 2020-11-30 16:37 | Emergency (ER) | payer MEDICARE ==
[~2020-11-30] VITALS: Ht 160 cm; Wt 113.5 kg
[~2020-11-30 16:37] MED LIST changes: -BUPIVACAINE HCL 0.5% INJ 30 ML VIAL INJ ONE; -CLINDAMYCIN 600MG / 50ML 0 ML IV ONE; -DEXAMETHASONE SOD PHOS INJ 4 MG/ML VIAL ONE; -FENTANYL CITRATE/PF 100MCG/2 ML INJ ONE; -LIDOCAINE HCL 2% LOCAL INJ 5 ML SDV VIAL INJ ONE; -METOCLOPRAMIDE HCL 10 MG/2ML VIAL ONE; -MIDAZOLAM HCL 2 MG/2 ML VIAL ONE; -MUPIROCIN 2% OINT 22 GM TUBE ONE; -ONDANSETRON HCL INJ 2MG/ML 2ML 2 MG/ML VIAL ONE; -PHENYLEPHRINE HCL 1% 10 MG/ML VIAL ONE; -PROMETHAZINE HCL (IM) 25 MG/ML VIAL ONE; -PROPOFOL IV EMULSION 10 MG/ML 20 ML VIAL ONE; -SEVOFLURANE INHAL SOLN 250 ML PEN BTL ONE
[2020-11-30 17:14] LABS: BASOPHILS # (AUTO) 0.1 (0.0-0.1); BASOPHILS % 0.8 % (0.0-1.0); EOSINOPHILS # (AUTO) 0.3 (0.0-0.4); EOSINOPHILS % 2.8 % (0.0-6.0); HEMATOCRIT 40.4 % (34.2-44.1); HEMOGLOBIN 13.4 g/dL (12.0-16.0); LYMPHOCYTES # (AUTO) 2.8 (1.0-3.2); LYMPHOCYTES % 22.5 % (18.0-39.1); MEAN CORPUSCULAR HEMOGLOBIN 26.7 pg (28-32); MEAN CORPUSCULAR HGB CONC 33.2 g/dL (31-35); MEAN CORPUSCULAR VOLUME 80.6 fL (81-99); MONOCYTES # (AUTO) 0.9 (0.2-0.8); MONOCYTES % 7.5 % (4.4-11.3); NEUTROPHILS # (AUTO) 8.1 (2.1-6.9); NEUTROPHILS % 65.9 % (38.7-80.0); PLATELET COUNT 412 x10e3/uL (140-360); RED BLOOD COUNT 5.01 x10e6/uL (3.6-5.1); RED CELL DISTRIBUTION WIDTH 14.2 % (11.7-14.4)
[2020-11-30] MEDS ORDERED: KETOROLAC TROMETHAMINE 30 MG/ML VIAL IV STA (17:16)
[2020-11-30] MEDS ORDERED: SODIUM CHLORIDE 0.9% 1000ML 1,000 ML IV ONE (17:30)
[2020-11-30 17:52] LABS: CLARITY,URINE CLEAR (CLEAR); COLOR,URINE YELLOW (YELLOW); KETONES,URINE NEGATIVE (NEGATIVE); LEUKOCYTE ESTERASE ,URINE NEGATIVE (NEGATIVE); NITRITE,URINE NEGATIVE (NEGATIVE); PROTEIN,URINE DIPSTICK NEGATIVE (NEGATIVE); URINE UROBILINOGEN 1 mg/dL (0.2 - 1)
[2020-11-30 18:02] LABS: EPITHELIAL CELLS,URINE MODERATE /LPF
[2020-11-30 18:03] LABS: ALANINE AMINOTRANSFERASE 19 IU/L (0-55); ALKALINE PHOSPHATASE 91 IU/L (40-150); ANION GAP 12.1 mmol/L (8-16); BACTERIA,URINE MODERATE /HPF; BLOOD UREA NITROGEN 13 mg/dL (7-26); BUN/CREATININE RATIO 18 (6-25); CALCIUM 8.8 mg/dL (8.4-10.2); CARBON DIOXIDE 27 mmol/L (22-29); CHLORIDE 107 mmol/L (98-107); CREATININE, SERUM 0.74 mg/dL (0.57-1.11); EST GLOMERULAR FILTRATION RATE > 60 ML/MIN (60-); GLUCOSE 94 mg/dL (74-118); POTASSIUM 4.1 mmol/L (3.5-5.1); RBC,URINE 0-5 /HPF (0-5); SODIUM 142 mmol/L (136-145); WBC,URINE (MAN) 0-5 /HPF (0-5)
[2020-11-30 22:17] VITALS: BP 132/65
== END 2020-11-30 21:10 | disposition home or self-care (01) ==
LOC: ER 17:40
DX: M54.5 Low back pain (principal); R31.9 Hematuria, unspecified; I10 Essential (primary) hypertension; E78.5 Hyperlipidemia, unspecified; N64.59 Other signs and symptoms in breast; E03.9 Hypothyroidism, unspecified; E78.00 Pure hypercholesterolemia, unspecified; Z87.442 Personal history of urinary calculi
CPT/HCPCS: 36415; 74176; 80053; 81001; 85025; 99284; J1885; J7030

== ENCOUNTER 2021-09-25 19:36 | Emergency (ER) | payer MEDICARE ==
[~2021-09-25] VITALS: Ht 160 cm; Wt 113.4 kg
[2021-09-25] MEDS ORDERED: KETOROLAC TROMETHAMINE 30 MG/ML VIAL IV STA (19:54)
[2021-09-25] MEDS ORDERED: TAMSULOSIN HCL 0.4 MG CAP PO SCH (20:00)
[2021-09-25] MEDS ORDERED: SODIUM CHLORIDE 0.9% 1000ML 1,000 ML IV ONE (20:00)
[2021-09-25] MEDS ORDERED: ONDANSETRON HCL INJ 2MG/ML 2ML 2 MG/ML VIAL IV PRN (20:00)
[2021-09-25 20:19] LABS: BASOPHILS # (AUTO) 0.1 (0.0-0.1); BASOPHILS % 0.8 % (0.0-1.0); EOSINOPHILS # (AUTO) 0.4 (0.0-0.4); EOSINOPHILS % 2.6 % (0.0-6.0); HEMOGLOBIN 13.1 g/dL (12.0-16.0); LYMPHOCYTES % 21.9 % (18.0-39.1); MEAN CORPUSCULAR HEMOGLOBIN 27.5 pg (28-32); MEAN CORPUSCULAR HGB CONC 33.6 g/dL (31-35); MEAN CORPUSCULAR VOLUME 81.8 fL (81-99); MONOCYTES # (AUTO) 0.8 (0.2-0.8); MONOCYTES % 5.9 % (4.4-11.3); NEUTROPHILS # (AUTO) 9.4 (2.1-6.9); NEUTROPHILS % 68.5 % (38.7-80.0); PLATELET COUNT 386 x10e3/uL (140-360); RED BLOOD COUNT 4.77 x10e6/uL (3.6-5.1)
[2021-09-25 20:26] LABS: CLARITY,URINE CLEAR (CLEAR); COLOR,URINE YELLOW (YELLOW); KETONES,URINE NEGATIVE (NEGATIVE); LEUKOCYTE ESTERASE ,URINE NEGATIVE (NEGATIVE); NITRITE,URINE NEGATIVE (NEGATIVE); PROTEIN,URINE DIPSTICK NEGATIVE (NEGATIVE); URINE UROBILINOGEN 0.2 mg/dL (0.2 - 1)
[2021-09-25 20:32] LABS: BACTERIA,URINE MODERATE /HPF; EPITHELIAL CELLS,URINE MODERATE /LPF
[2021-09-25 20:54] LABS: ALBUMIN 3.9 g/dL (3.5-5.0); ALBUMIN/GLOBULIN RATIO 0.9 (0.8-2.0); CALCIUM 9.1 mg/dL (8.4-10.2); CREATININE, SERUM 0.68 mg/dL (0.57-1.11)
[2021-09-25 22:08] VITALS: BP 150/91
== END 2021-09-25 22:10 | disposition home or self-care (01) ==
LOC: ER 19:45
DX: S39.012A Strain of muscle, fascia and tendon of lower back, initial encounter (principal); N94.89 Other specified conditions associated with female genital organs and menstrual cycle
CPT/HCPCS: 36415; 74176; 80053; 81001; 81025; 85025; 99284; J1885; J2405; J7030

== ENCOUNTER → 2022-10-07 | Outpatient (CLI) | payer MEDICARE | LOC: MAMMO 10:20 | PROVIDERS: ATTEND Family Medicine | DX: Z12.31 Encounter for screening mammogram for malignant neoplasm of breast (principal) | CPT/HCPCS: 77067 ==

== ENCOUNTER → 2022-11-12 | Outpatient (CLI) | payer MEDICARE | LOC: DX 11:08 | PROVIDERS: ATTEND Family Medicine | DX: Z13.820 Encounter for screening for osteoporosis (principal) | CPT/HCPCS: 77080 ==

== ENCOUNTER → 2023-10-08 | Outpatient (REF) | payer MEDICARE | LOC: MAMMO 12:36 | PROVIDERS: ATTEND Nurse Practitioner Family | DX: Z12.31 Encounter for screening mammogram for malignant neoplasm of breast (principal) | CPT/HCPCS: 77067 ==

== ENCOUNTER 2024-05-29 11:48 | Emergency (ER) | payer MEDICARE ==
[~2024-05-29] VITALS: Ht 162.6 cm; Wt 113.4 kg
[~2024-05-29 11:48] MED LIST changes: +IBUPROFEN600 MG PO
[2024-05-29] MEDS: ONDANSETRON HCL INJ 2MG/ML 2ML 2 MG/ML VIAL IV STA (12:24)
[2024-05-29] MEDS: FENTANYL CITRATE/PF 100MCG/2 ML INJ IV ONE (12:24)
[2024-05-29 12:52] LABS: BASOPHILS # (AUTO) 0.1 (0.0-0.1); BASOPHILS % 0.7 % (0.0-1.0); EOSINOPHILS # (AUTO) 0.5 (0.0-0.4); EOSINOPHILS % 4.4 % (0.0-6.0); HEMATOCRIT 39.2 % (34.2-44.1); HEMOGLOBIN 12.6 g/dL (12.0-16.0); LYMPHOCYTES # (AUTO) 2.1 (1.0-3.2); LYMPHOCYTES % 18.9 % (18.0-39.1); MEAN CORPUSCULAR HEMOGLOBIN 27.4 pg (28-32); MEAN CORPUSCULAR HGB CONC 32.1 g/dL (31-35); MEAN CORPUSCULAR VOLUME 85.2 fL (81-99); MONOCYTES # (AUTO) 0.6 (0.2-0.8); MONOCYTES % 5.8 % (4.4-11.3); NEUTROPHILS # (AUTO) 7.7 (2.1-6.9); PLATELET COUNT 344 x10e3/uL (140-360); RED CELL DISTRIBUTION WIDTH 14.1 % (11.7-14.4); WHITE BLOOD COUNT 10.98 x10e3/uL (4.8-10.8)
[2024-05-29 13:10] LABS: BILIRUBIN,URINE NEGATIVE (NEGATIVE); CLARITY,URINE CLEAR (CLEAR); COLOR,URINE YELLOW (YELLOW); GLUCOSE, URINE NEGATIVE (NEGATIVE); KETONES,URINE TRACE (NEGATIVE); LEUKOCYTE ESTERASE ,URINE NEGATIVE (NEGATIVE); NITRITE,URINE NEGATIVE (NEGATIVE); PH,URINE 7 (5 - 7); PROTEIN,URINE DIPSTICK NEGATIVE (NEGATIVE); URINE UROBILINOGEN 0.2 mg/dL (0.2 - 1)
[2024-05-29 13:13] LABS: ALBUMIN/GLOBULIN RATIO 1.1 (0.8-2.0); ANION GAP 14.8 mmol/L (8-16); BILIRUBIN,TOTAL 1.1 mg/dL (0.2-1.2); CALCIUM 9.2 mg/dL (8.4-10.2); CREATININE, SERUM 0.74 mg/dL (0.57-1.11); POTASSIUM 3.8 mmol/L (3.5-5.1); TOTAL PROTEIN 7.7 g/dL (6.5-8.1)
[2024-05-29 13:24] LABS: BACTERIA,URINE MODERATE /HPF; RBC,URINE 0-5 /HPF (0-5); WBC,URINE (MAN) 0-5 /HPF (0-5)
[2024-05-29 13:25] LABS: EPITHELIAL CELLS,URINE RARE /LPF
[2024-05-29] MEDS: CYCLOBENZAPRINE HCL 10 MG TAB PO ONE (13:29)
[2024-05-29] MEDS ORDERED: NAPROXEN250 MG PO (14:07)
[2024-05-29 14:16] VITALS: PULSE 84; RESP 16; TEMP 98.2; O2SAT 100
== END 2024-05-29 14:45 | disposition home or self-care (01) ==
LOC: ER 12:10
DX: R10.30 Lower abdominal pain, unspecified (principal); N20.0 Calculus of kidney; N83.202 Unspecified ovarian cyst, left side; S39.012A Strain of muscle, fascia and tendon of lower back, initial encounter; I10 Essential (primary) hypertension; E03.9 Hypothyroidism, unspecified; E78.5 Hyperlipidemia, unspecified; Z87.442 Personal history of urinary calculi
CPT/HCPCS: 36415; 74176; 80053; 81001; 85025; 99284; J2405; J3010

== ENCOUNTER → 2024-07-12 | Outpatient (REF) | payer MEDICARE ==
[~2024-07-12] MED LIST changes: +NAPROXEN250 MG PO
== END ==
LOC: MAMMO 12:47
PROVIDERS: ATTEND Nurse Practitioner Family
DX: Z12.31 Encounter for screening mammogram for malignant neoplasm of breast (principal)
CPT/HCPCS: 77067